=== PATIENT | female | born 1955 | race Hispanic/Latino ===

== ENCOUNTER → 2017-04-16 | Day surgery (SDC) | payer BC ==
[~2017-04-16] MED LIST: ACTIVELLA 0.5-1 EACH; ASPIRIN EC81 MG PO; BENTYL10 MG PO; BUTALB-ACETAMIN-CAFF PO; CALCIUM600 MG PO; ELMIRON100 MG; ENALAPRIL MALEA20 MG PO; FENTANYL CITRATE/PF 100MCG/2 ML INJ ONE; LASIX40 MG; LEVAQUIN500 MG PO; LIDOCAINE HCL 2% LOCAL INJ 5 ML SDV VIAL INJ ONE; METOPROLOL SUC100 MG PO; MIDAZOLAM HCL 2 MG/2 ML VIAL ONE; NAPROXEN375 MG PO; PRILOSEC20 MG PO; PROPOFOL IV EMULSION 10 MG/ML 50 ML VIAL ONE; PYRIDIUM100 MG PO; ZOFRAN ODT4 MG PO
== END | disposition home or self-care (01) ==
LOC: OR 08:34
PROVIDERS: ATTEND Internal Medicine Gastroenterology
DX: K21.9 Gastro-esophageal reflux disease without esophagitis (principal); D12.2 Benign neoplasm of ascending colon; K29.70 Gastritis, unspecified, without bleeding; K57.30 Diverticulosis of large intestine without perforation or abscess without bleeding; K64.1 Second degree hemorrhoids; K44.9 Diaphragmatic hernia without obstruction or gangrene; I10 Essential (primary) hypertension; Z01.810 Encounter for preprocedural cardiovascular examination; Z79.82 Long term (current) use of aspirin
CPT/HCPCS: 43239; 45384; 93005; J2001; J2250; 45378

== ENCOUNTER → 2017-08-14 | Outpatient (CLI) | payer BC ==
[~2017-08-14] MED LIST changes: -FENTANYL CITRATE/PF 100MCG/2 ML INJ ONE; -LIDOCAINE HCL 2% LOCAL INJ 5 ML SDV VIAL INJ ONE; -MIDAZOLAM HCL 2 MG/2 ML VIAL ONE; -PROPOFOL IV EMULSION 10 MG/ML 50 ML VIAL ONE
--- NOTE | 2017-08-14 12:17 | Diagnostic Imaging Report ---
PROCEDURE:BONE DXA DUAL ENERGY FINDINGS: Proximal femur bone mineral density (BMD) (g/cm2):0.780 Femur T-score (standard deviation relative to young adult mean BMD): -1.4 Femur Z-score (standard deviation relative to age-matched control group):-2.6 10 year fracture risk: Major osteoporotic fracture: 4.9% Hip fracture: 0.5% Lumbar bone mineral density (BMD) (g/cm2):0.781 Lumbar T-score (standard deviation relative to young adult mean BMD): -2.4 Lumbar Z-score (standard deviation relative to age-matched control group):- 0.8 Change since prior exam (%): Femur:0.7% Spine:1.8% Change since oldest prior exam (%): Femur:-2.6% Spine:2.6% IMPRESSION: World Health Organization Classification:Osteopenia. Increase risk of fracture. *The Z-score is provided for informational purposes. The T-score is preferable for clinical decisions. When comparing exams, a change of >4% is considered statistically significant. SUGGESTED RECOMMENDATIONS: Normal \T\ Osteopenia:Consideration should be given to use of calcium supplementation, daily multiple vitamins and adequate exercise, as preventive measures against osteoporosis, if clinically indicated. Osteoporosis \T\ Severe Osteoporosis:In addition to the above, consideration should be given to medical therapy against osteoporosis, if clinically indicated. Maribell Cesar M.D. Dictated by: Maribell Cesar M.D. on 08/14/2017 at 12:17 Electronically approved by: Maribell Cesar M.D. on 08/14/2017 at 12:17
--- NOTE | 2017-08-23 18:11 | Diagnostic Imaging Report ---
#[id number] - MGSCRBIL #BILATERAL DIGITAL SCREENING MAMMOGRAM WITH CAD: 08/14/2017 CLINICAL: Routine screening. Comparison is made to exams dated: 05/09/2016 mammogram and 05/21/2015 mammogram - [facility]. Current study contains 4 films. There are scattered fibroglandular elements in both breasts. Current study was also evaluated with a Computer Aided Detection (CAD) system. There are benign calcifications in both breasts. No significant masses, calcifications, or other findings are seen in either breast. There has been no significant interval change. IMPRESSION: BENIGN There is no mammographic evidence of malignancy. A 1 year screening mammogram is recommended. The patient will be notified by letter of the results. Ezra alexander/joão:08/22/2017 13:01:25 Security Operations Engineer: Ira NICK(Ananya)(M), [facility] letter sent: Compared to Prior B9 Mammogram BI-RADS: 2 Benign
== END ==
LOC: MAMMO 08:10
PROVIDERS: ATTEND Obstetrics & Gynecology
DX: Z12.31 Encounter for screening mammogram for malignant neoplasm of breast (principal); Z13.820 Encounter for screening for osteoporosis
CPT/HCPCS: 77067; 77080

== ENCOUNTER 2018-02-06 21:56 | Emergency (ER) | payer BC ==
[~2018-02-06] VITALS: Ht 154.9 cm; Wt 62.1 kg
[2018-02-06] MEDS ORDERED: MAGNESIUM/ALUMINUM/SIMETHICONE 30 ML UDC ONE (22:48)
[2018-02-06] MEDS ORDERED: LIDOCAINE VISC 2% SOLN 15 ML UDC ONE (22:48)
[2018-02-06] MEDS ORDERED: BELLADONNA ALK/PHENOBARBITAL 5 ML UDC ONE (22:48)
[2018-02-06] MEDS: DONNATAL/LIDOCAINE/MAALOX 30 ML SUSP PO ONE ×2 (22:49→22:50)
[2018-02-06] MEDS ORDERED: CARAFATE1 GM/10 ML PO (23:27)
== END 2018-02-06 23:36 | disposition home or self-care (01) ==
LOC: ER 21:56
DX: R10.13 Epigastric pain (principal); K29.00 Acute gastritis without bleeding; I10 Essential (primary) hypertension; K21.9 Gastro-esophageal reflux disease without esophagitis

== ENCOUNTER 2018-03-12 21:00 | Observation (INO) | payer BC ==
[~2018-03-12] VITALS: Ht 149.9 cm; Wt 65.0 kg
[~2018-03-12 21:00] MED LIST changes: +CARAFATE1 GM/10 ML PO
[2018-03-12] MEDS ORDERED: ONDANSETRON HCL INJ 2 MG/ML VIAL IV ONE (21:22)
[2018-03-12] MEDS ORDERED: DIATRIZOATE MEGL/DIATRIZOA SOD 30 ML BTL PO ONE (21:27)
[2018-03-12] MEDS ORDERED: SODIUM CHLORIDE 0.9% 1000ML 1,000 ML IV ONE (21:30)
[2018-03-12 21:44] LABS: BASOPHILS % 0.3 % (0.0-1.0); HEMATOCRIT 38.7 % (34.2-44.1); HEMOGLOBIN 13.2 g/dL (12.0-16.0); LYMPHOCYTES # (AUTO) 0.8 (1.0-3.2); LYMPHOCYTES % 7.6 % (18.0-39.1); MEAN CORPUSCULAR HEMOGLOBIN 33.8 pg (28-32); MEAN CORPUSCULAR HGB CONC 34.1 g/dL (31-35); MONOCYTES # (AUTO) 0.6 (0.2-0.8); MONOCYTES % 5.7 % (4.4-11.3); NEUTROPHILS # (AUTO) 9.3 (2.1-6.9); NEUTROPHILS % 85.7 % (38.7-80.0); PLATELET COUNT 189 x10e3/uL (140-360); RED BLOOD COUNT 3.91 x10e6/uL (3.6-5.1); RED CELL DISTRIBUTION WIDTH 12.4 % (11.7-14.4)
[2018-03-12 22:09] LABS: ALANINE AMINOTRANSFERASE 28 IU/L (0-55); ALBUMIN 4.4 g/dL (3.5-5.0); ALBUMIN/GLOBULIN RATIO 1.5 (0.8-2.0); ALKALINE PHOSPHATASE 80 IU/L (40-150); AMYLASE 49 U/L (25-125); ANION GAP 18.3 mmol/L (8-16); BLOOD UREA NITROGEN 13 mg/dL (7-26); BUN/CREATININE RATIO 15 (6-25); CALCIUM 9.5 mg/dL (8.4-10.2); CARBON DIOXIDE 22 mmol/L (22-29); CHLORIDE 104 mmol/L (98-107); CREATININE, SERUM 0.86 mg/dL (0.57-1.11); EST GLOMERULAR FILTRATION RATE > 60 ML/MIN (60-); GLUCOSE 170 mg/dL (74-118); LIPASE 27 U/L (8-78); POTASSIUM 4.3 mmol/L (3.5-5.1); SODIUM 140 mmol/L (136-145)
[2018-03-12] MEDS ORDERED: MORPHINE SULFATE 2 MG/ML SYR IV STA (22:12)
[2018-03-12 22:22] LABS: CLARITY,URINE CLEAR (CLEAR); COLOR,URINE YELLOW (YELLOW); KETONES,URINE 2+ (NEGATIVE); LEUKOCYTE ESTERASE ,URINE NEGATIVE (NEGATIVE); NITRITE,URINE NEGATIVE (NEGATIVE); PROTEIN,URINE DIPSTICK 1+ (NEGATIVE); URINE UROBILINOGEN 0.2 mg/dL (0.2 - 1)
[2018-03-12 22:23] LABS: BILIRUBIN,URINE NEGATIVE (NEGATIVE)
[2018-03-12 22:31] LABS: BACTERIA,URINE RARE /HPF; EPITHELIAL CELLS,URINE FEW /LPF; MUCUS,URINE FEW (RARE)
[2018-03-12] MEDS ORDERED: IOPAMIDOL 370 MG/ML 200 ML INFUS..BTL INJ ONE (22:42)
[2018-03-12] MEDS ORDERED: SODIUM CHLORIDE 0.9% 50ML 50 ML ONE (22:42)
--- NOTE | 2018-03-12 23:41 | Diagnostic Imaging Report ---
EXAM: CT Abdomen and Pelvis WITH contrast INDICATION: Abdominal pain, right lower quadrant. COMPARISON: None. TECHNIQUE: Abdomen and pelvis were scanned utilizing a multidetector helical scanner from the lung base to the pubic symphysis after administration of IV contrast. Coronal and sagittal reformations were obtained. Routine protocol was performed. Scan was performed when during portal venous phase. IV CONTRAST: 100 mL of Isovue-370 ORAL CONTRAST: Gastrografin RADIATION DOSE: Total DLP: 233.40 mGy*cm Estimated effective dose: (DLP x 0.015 x size factor) mSv COMPLICATIONS: None FINDINGS: LINES and TUBES: None. LOWER THORAX: Unremarkable HEPATOBILIARY: No focal hepatic lesions. No biliary ductal dilation. GALLBLADDER: No radio-opaque stones or sludge. No wall thickening. SPLEEN: No splenomegaly. PANCREAS: No focal masses or ductal dilatation. ADRENALS: No adrenal nodules KIDNEYS/URETERS: Kidneys enhance symmetrically. No hydronephrosis. No cystic or solid mass lesions. No stones. GI TRACT: No abnormal distention, wall thickening, or evidence of bowel obstruction. The appendix is diffusely distended with fluid with evidence of a large appendicolith at the origin of the appendix. The appendix measures 1.3 cm in maximum dimension. PELVIC ORGANS/BLADDER: Unremarkable. LYMPH NODES: No lymphadenopathy. VESSELS: Unremarkable. PERITONEUM / RETROPERITONEUM: No free air or fluid. BONES: Unremarkable. SOFT TISSUES: Right gluteal area of fat necrosis and bilateral soft tissue calcifications . IMPRESSION: 1. Findings in the right lower quadrant are consistent with uncomplicated acute appendicitis. Signed by: Dr. Nic Pastrana M.D. on 03/12/2018 11:37 PM
[2018-03-13] VITALS (8 sets, daily range): BP systolic 86–131; BP diastolic 45–62
[2018-03-13] MEDS ORDERED: MORPHINE SULFATE 2 MG/ML SYR IV PRN
[2018-03-13] MEDS ORDERED: ONDANSETRON HCL INJ 2 MG/ML VIAL IV PRN
[2018-03-13] MEDS: ACETAMINOPHEN 1000 MG/100 ML IV PRN ×2 (01:26→07:47)
[2018-03-13] MEDS: SODIUM CHLORIDE 0.9% 1000ML 1,000 ML IV SCH ×4 (01:26→23:58)
[2018-03-13] MEDS: PIPER-TAZ 3.375 GM / NS 50ML IV SCH ×4 (01:34→17:25)
[2018-03-13] MEDS ORDERED: PROMETHAZINE HC25 M1 PO (01:37)
[2018-03-13] MEDS ORDERED: IBGARD PO (01:37)
[2018-03-13] MEDS ORDERED: PANTOPRAZOLE SO40 MG PO (01:37)
[2018-03-13] MEDS ORDERED: ULTRAM 50MG50 MG PO (01:37)
[2018-03-13 06:34] LABS: BASOPHILS % 0.1 % (0.0-1.0); HEMATOCRIT 32.5 % (34.2-44.1); LYMPHOCYTES % 10.3 % (18.0-39.1); MEAN CORPUSCULAR HEMOGLOBIN 33.8 pg (28-32); MEAN CORPUSCULAR HGB CONC 33.8 g/dL (31-35); MONOCYTES # (AUTO) 0.8 (0.2-0.8); MONOCYTES % 8.3 % (4.4-11.3); NEUTROPHILS # (AUTO) 7.9 (2.1-6.9); NEUTROPHILS % 80.9 % (38.7-80.0); PLATELET COUNT 128 x10e3/uL (140-360); RED BLOOD COUNT 3.25 x10e6/uL (3.6-5.1); RED CELL DISTRIBUTION WIDTH 12.3 % (11.7-14.4)
[2018-03-13 07:02] LABS: ALANINE AMINOTRANSFERASE 20 IU/L (0-55); ALBUMIN 3.4 g/dL (3.5-5.0); ALBUMIN/GLOBULIN RATIO 1.5 (0.8-2.0); ALKALINE PHOSPHATASE 62 IU/L (40-150); ANION GAP 14.1 mmol/L (8-16); BLOOD UREA NITROGEN 9 mg/dL (7-26); BUN/CREATININE RATIO 11 (6-25); CALCIUM 8.2 mg/dL (8.4-10.2); CARBON DIOXIDE 21 mmol/L (22-29); CHLORIDE 107 mmol/L (98-107); CREATININE, SERUM 0.81 mg/dL (0.57-1.11); EST GLOMERULAR FILTRATION RATE > 60 ML/MIN (60-); GLUCOSE 132 mg/dL (74-118); POTASSIUM 4.1 mmol/L (3.5-5.1); SODIUM 138 mmol/L (136-145)
[2018-03-13] MEDS ORDERED: BUPIVACAINE 0.25%/EPI 30ML SDV INJ ONE (09:10)
[2018-03-13] MEDS: PANTOPRAZOLE 40 MG 10ML VIAL IV SCH (11:38)
--- NOTE | 2018-03-13 12:02 | History and Physical ---
CLINICAL HISTORY: This is a 62-year-old woman known to me from previous evaluation, admitted via the emergency room because of acute appendicitis. The patient is status post endoscopy on the day of admission but still had abdominal pains. Came to the emergency room and was found to have acute appendicitis include CT findings consistent with clinical findings. Surgical consultation has been obtained with Drs. Wahl and Pierce Contreras. PAST MEDICAL HISTORY: Remarkable for hospitalization in 2013 for right calf pain. At that time, there was concern about deep venous thrombosis after multiple suboptimal scans, it was determined that she did not. She has a history of hypertension, hyperlipidemia, chronic headaches. PAST SURGERY: Included cholecystectomy, right knee replacement, cystoscopy and biopsy. PERSONAL SOCIAL HISTORY: Denies drinking, smoking. She is , sexually active. MEDICATIONS AT HOME: Include pantoprazole, promethazine, tramadol, enalapril 20 mg p.o. b.i.d., metoprolol 100 mg p.o. daily, IBgard. REVIEW OF SYSTEMS: Noncontributory. PHYSICAL EXAMINATION GENERAL: She is alert, coherent. CARDIOVASCULAR: Jugular veins were not distended. S1 and S2 were regular. There is no appreciable murmur. RESPIRATORY: Lungs are clear. ABDOMEN: Showed tenderness. EXTREMITIES: Show no cyanosis, clubbing, or edema. LABORATORY STUDIES: The white count was 10,800, hemoglobin 13.2, platelet count 189,000. The urinalysis showed 2+ ketones and blood, 11 to 20 RBCs, 6 to 10 WBCs, few bacteria. The BUN is 13, creatinine 0.8. IMPRESSIONS 1. Acute appendicitis. 2. Status post endoscopy on the day of admission. 3. Hypertension. 4. Hyperlipidemia. 5. Possible urinary tract infection. 6. Microhematuria. 7. Elevated blood sugar, consider prediabetes. 8. History of headaches. 9. History of right calf pain in 2013, but deep venous thrombosis was excluded. 10. Status post cystoscopy. 11. In the distant, past right knee replacement, cholecystectomy. Job#: [id number] TA cc:YEIMY COLLINS MD cc:PIERCE CONTRERAS MD
--- NOTE | 2018-03-13 13:11 | Operative Report ---
DATE OF PROCEDURE: March 13, 2018 PREOPERATIVE DIAGNOSIS: Acute appendicitis. POSTOPERATIVE DIAGNOSIS: Acute gangrenous appendicitis. PROCEDURE PERFORMED: Laparoscopic appendectomy. ANESTHESIA: General endotracheal. ESTIMATED BLOOD LOSS: Minimal. DRAINS: None. COMPLICATIONS: None. INDICATIONS AND FINDINGS: The patient is a 62-year-old female who had undergone yesterday colonoscopy and then subsequently she developed right lower quadrant pain, presented to the emergency room at [facility] where she underwent a CAT scan that revealed acute appendicitis. INTRAOPERATIVE FINDINGS: Acute gangrenous appendicitis. No gross perforation. DESCRIPTION OF PROCEDURE: With the patient lying on the operative table in the supine position, after administration of general anesthesia, she was prepped and draped for laparoscopic appendectomy. The procedure was begun by establishing a pneumoperitoneum in the umbilical site and then after the saline drop test was performed, a pneumoperitoneum was created to 15 mm of pressure. Then, a stab wound was made in that location and then the 11-12 trocar placed in that location. Camera introduced. Two working ports were placed, one in the right upper quadrant and the other one in the right lower quadrant suprapubic region using 5 mm size. The abdominal cavity was inspected. Appendix was seen easily, it was gangrenous, but not perforated. We went ahead and then made a rent in the mesoappendix and transected part of it with Endo SAMMIE using the white load. Then, we gained access to the cecum and then using the blue load, we transected the mesoappendiceal junction at a point where the appendix was soft and pliable. Then, we completed the procedure by firing and completed the transection of the mesoappendix using a white load with Endo SAMMIE also. The appendix was detached, placed in an Endo bag and removed through the umbilical port. We re-insufflated the pneumoperitoneum, inspected the operative field, irrigated the right lower quadrant. There was no evidence of bleeding or any evidence of bowel leak. At this point, we released the pneumoperitoneum and closed the wounds using 0 Vicryl for the umbilical fascia, 3-0 Vicryl for the subcutaneous tissue in that location as well as the subxiphoid port and the skin of all the ports was closed with joseph. A 0.25% Marcaine with epinephrine was given as local block. The patient tolerated the procedure well and taken to the recovery room in stable condition. Job#: [id number] VAS
[2018-03-13] MEDS ORDERED: FENTANYL CITRATE/PF 100MCG/2 ML INJ ONE (18:43)
[2018-03-13] MEDS ORDERED: MIDAZOLAM HCL 2 MG/2 ML VIAL ONE (18:43)
[2018-03-13] MEDS ORDERED: KETOROLAC TROMETHAMINE 30 MG/ML VIAL ONE (19:29)
[2018-03-13] MEDS ORDERED: GLYCOPYRROLATE INJ 1MG/ 5 ML SYR ONE (19:29)
[2018-03-13] MEDS ORDERED: ONDANSETRON HCL INJ 2 MG/ML VIAL ONE (19:29)
[2018-03-13] MEDS ORDERED: NEOSTIGMINE 5 MG/5ML SYR ONE (19:29)
[2018-03-13] MEDS ORDERED: SEVOFLURANE INHAL SOLN 250 ML PEN BTL ONE (19:29)
[2018-03-13] MEDS ORDERED: PROPOFOL IV EMULSION 10 MG/ML 20 ML VIAL ONE (19:29)
[2018-03-13] MEDS ORDERED: LIDOCAINE HCL 2% LOCAL INJ 5 ML SDV VIAL INJ ONE (19:29)
[2018-03-13] MEDS ORDERED: DEXAMETHASONE SOD PHOS INJ 4 MG/ML VIAL ONE (19:29)
[2018-03-13] MEDS ORDERED: ROCURONIUM BROMIDE 10 MG/ML 5ML VIAL ONE (19:29)
[2018-03-13] MEDS ORDERED: ACETAMINOPHEN 1000 MG/100 ML IV PRN (19:30)
[2018-03-13] MEDS ORDERED: MORPHINE SULFATE INJ 4 MG/ML INJ IV PRN (19:30)
--- NOTE | 2018-03-13 20:25 | Consultation ---
DATE OF CONSULTATION: Consultation for Dr. Wang and Dr. Vish Contreras. HISTORY: Utjal[age]oy[age]q-old female well known to me for having interstitial cystitis and chronic urinary tract infections. She has had cystoscopy with urodynamic evaluation, has been found to have interstitial cystitis by biopsy and by clinical impression. She has been treated for this condition on and off. The patient has an open door policy in my office and comes to my office whenever she feels bad. I have not seen her in approximately a year. When this year she comes to the office complaining of pain, she had a urinary tract infection, this was cleared. She still had abdominal pain and a CT scan was done. The CT scan was not with contrast, but it did not show any abnormalities of the intestinal tract or the urinary tract. PAST MEDICAL HISTORY: Patient has had interstitial cystitis for over 20 years, has handled it well on medications and on diet periodically depending on whether she follows her diet and takes her medicines, which she does not do all the time. ALLERGIES: NONE. MEDICATIONS: . She also takes her blood pressure medicines. SOCIAL HISTORY: She is , has had children. She is sexually active. UROLOGICAL EXAMINATION: At this point, the patient has an indwelling Stewart catheter. She was getting voiding trial today and has been able to urinate small amounts with 250 mL residual. IMPRESSION: Interstitial cystitis, urinary retention post appendectomy. RECOMMENDATIONS: The patient has an indwelling Stewart catheter. Her urine is clear. She will have the Stewart catheter removed tomorrow morning 5:30, given a voiding trial. If her postvoid residual is over 100, she will have a catheter, a leg bag. She may go home if okay with the admitting physician, and I will see her in the office Saturday morning. Thank you very much. Job#: [id number]
[2018-03-14] MEDS: PIPER-TAZ 3.375 GM / NS 50ML IV SCH ×4 (00:09→17:08)
[2018-03-14] MEDS: SODIUM CHLORIDE 0.9% 1000ML 1,000 ML IV SCH (03:21)
[2018-03-14 04:00] VITALS: BP 104/55
[2018-03-14 05:53] LABS: HEMATOCRIT 27.7 % (34.2-44.1); HEMOGLOBIN 9.5 g/dL (12.0-16.0); LYMPHOCYTES # (AUTO) 0.7 (1.0-3.2); LYMPHOCYTES % 9.2 % (18.0-39.1); MEAN CORPUSCULAR HEMOGLOBIN 35.2 pg (28-32); MEAN CORPUSCULAR HGB CONC 34.3 g/dL (31-35); MEAN CORPUSCULAR VOLUME 102.6 fL (81-99); MONOCYTES # (AUTO) 0.5 (0.2-0.8); MONOCYTES % 7.1 % (4.4-11.3); NEUTROPHILS # (AUTO) 5.9 (2.1-6.9); PLATELET COUNT 131 x10e3/uL (140-360); RED CELL DISTRIBUTION WIDTH 12.6 % (11.7-14.4)
[2018-03-14 06:03] LABS: ANION GAP 12.2 mmol/L (8-16); BLOOD UREA NITROGEN 9 mg/dL (7-26); BUN/CREATININE RATIO 12 (6-25); CALCIUM 7.8 mg/dL (8.4-10.2); CARBON DIOXIDE 19 mmol/L (22-29); CHLORIDE 113 mmol/L (98-107); CREATININE, SERUM 0.75 mg/dL (0.57-1.11); EST GLOMERULAR FILTRATION RATE > 60 ML/MIN (60-); GLUCOSE 110 mg/dL (74-118); POTASSIUM 4.2 mmol/L (3.5-5.1); SODIUM 140 mmol/L (136-145)
[2018-03-14 07:25] VITALS: BP 118/57
[2018-03-14] MEDS: PANTOPRAZOLE 40 MG 10ML VIAL IV SCH (08:29)
[2018-03-14] MEDS ORDERED: KETOROLAC TROMETHAMINE 30 MG/ML VIAL IV PRN (09:00)
[2018-03-14] MEDS ORDERED: OYST-CAL-D 500MG TABLET PO NR (09:15)
[2018-03-14 09:28] LABS: % IRON SATURATION 16 % (15-50); IRON 35 ug/dL (50-170); TOTAL IRON BINDING CAPACITY 216 ug/dL (261-478); TRANSFERRIN 154 mg/dL (180-382)
--- NOTE | 2018-03-14 09:32 | Discharge Summary ---
CLINICAL HISTORY: This is a 62-year-old woman known to me from previous evaluations admitted via the emergency room because of acute appendicitis following upper endoscopy by Dr. Dick Sow. Please refer to my previous dictation concerning details of current illness, past medical history, personal and social history, family history, review of systems, physical examination, initial laboratory studies. HOSPITAL COURSE: The patient was found to have acute appendicitis based on CT scan, as well as clinical examination. Surgery consultation was obtained with Dr. Pierce Contreras, who performed successful laparoscopic appendectomy, which was tolerated well. She had no immediate postoperative complications. Able to progress with diet. Mobilized and adequate pain control. Discharged on the same medication she was taking previously. DISCHARGE DIAGNOSES: Same as on admission. During this hospitalization, the patient did had microhematuria and some white cells, but she was covered with antibiotics during her appendectomy. It was felt that she can followed further on an outpatient basis with her urologist, Dr. Viraj Kirby, who did come and see the patient during this hospitalization. Following the surgery, the patient was slightly acidotic and had slightly low albumin, as well as calcium. Appropriate corrections were made. HANS GODOY MD Job#: [id number] RI cc:MD PIERCE FIORE MD RAMON A. PINEDA, MD HARRY S. OJEAS, MD
[2018-03-14] MEDS: SODIUM BICARBONATE 650 MG TAB PO SCH ×2 (09:37→13:47)
[2018-03-14 11:08] VITALS: BP 118/57
[2018-03-14 12:00] VITALS: BP 103/51
[2018-03-14 16:12] VITALS: BP 107/51
[2018-03-14] MEDS ORDERED: LEVAQUIN500 MG PO (16:34)
[2018-03-14] MEDS ORDERED: TYLENOL WITH C1 EACH PO (16:34)
--- OUTSIDE RECORDS SUMMARY | 2018-03-25 10:01 | XMS REPORT ---
Author Author [facility] Address Unknown Phone Unavailable Care Team Providers Care Mayonnaise Mixer Name Role Phone Maria Victoria BARRIENTOS Unavailable Unavailable SHERRI, KERRI Unavailable Unavailable SWEET, A LAIRD Unavailable Unavailable Problems This patient has no known problems. Allergies, Adverse Reactions, Alerts This patient has no known allergies or adverse reactions. Medications This patient has no known medications. Results Test Description Test Time Test Comments Text Results Atomic Results Result Comments CT ABDOMEN/PELVIS W 2018-03-12 23:35:00 [place] [address] Patient Name: PRIMITIVO MORGAN MR #: [id number] : 1955 Age/Sex: 62/F Req #: [id number] Adm Physician: Ordered by: MADEELINE BARRIENTOS MD Report #: [id number] Location: ER Room/Bed: Procedure: [id number] CT/CT ABDOMEN/PELVIS W Exam Date: Exam Time: REPORT STATUS: Signed EXAM: CT Abdomen and Pelvis WITH contrast INDICATION: Abdominal pain, right lower quadrant. COMPARISON: None. TECHNIQUE: Abdomen and pelvis were scanned utilizing a multidetector helical scanner from the lung base to the pubic symphysis after administration of IV contrast. Coronal and sagittal reformations were obtained. Routine protocol was performed. Scan was performed when during portal venous phase. IV CONTRAST: 100 mL of Isovue-370 ORAL CONTRAST: Gastrografin RADIATION DOSE: Total DLP: 233.40 mGy*cm Estimated effective dose: (DLP x 0.015 x size factor) mSv COMPLICATIONS: None FINDINGS: LINES and TUBES: None. LOWER THORAX: Unremarkable HEPATOBILIARY: No focal hepatic lesions. No biliary ductal dilation. GALLBLADDER: No radio-opaque stones or sludge. No wall thickening. SPLEEN: No splenomegaly. PANCREAS: No focal masses or ductal dilatation. ADRENALS: No adrenal nodules KIDNEYS/URETERS: Kidneys enhance symmetrically. No hydronephrosis. No cystic or solid mass lesions. No stones. GI TRACT: No abnormal distention, wall thickening, or evidence of bowel obstruction. The appendix is diffusely distended with fluid with evidence of a large appendicolith at the origin of the appendix. The appendix measures 1.3 cm in maximum dimension. PELVIC ORGANS/BLADDER: Unremarkable. LYMPH NODES: No lymphadenopathy. VESSELS: Unremarkable. PERITONEUM / RETROPERITONEUM: No free air or fluid. BONES: Unremarkable. SOFT TISSUES: Right gluteal area of fat necrosis and bilateral soft tissue calcifications . IMPRESSION: 1. Findings in the right lower quadrant are consistent with uncomplicated acute appendicitis. Signed by: Dr. Nic Pastrana M.D. on 03/12/2018 11:37 PM Dictated By: NIC MALDONADO MD 36 Transcribed By: GAVIN on 03/12/182336 COPY TO: MADELEINE BARRIENTOS MD BONE DXA DUAL ENERGY [place] [address] Patient Name: PRIMITIVO MORGAN MR #: [id number] : 1955 Age/Sex: 62/F Req #: [id number] Adm Physician: Ordered by: KERRI POLANCO MD Report #: [id number] Location: [facility] Room/Bed: Procedure: [id number] DX/BONE DXA DUAL ENERGY Exam Date: Exam Time: REPORT STATUS: Signed PROCEDURE: BONE DXA DUAL ENERGY FINDINGS: Proximal femur bone mineral density (BMD) (g/cm2): 0.780 Femur T-score (standard deviation relative to young adult mean BMD): -1.4 Femur Z-score (standard deviation relative to age-matched control group): -2.6 10 year fracture risk: Major osteoporotic fracture: 4.9% Hip fracture: 0.5% Lumbar bone mineral density (BMD) (g/cm2): 0.781 Lumbar T-score (standard deviation relative to young adult mean BMD): -2.4 Lumbar Z-score (standard deviation relative to age-matched control group): - 0.8 Change since prior exam (%): Femur: 0.7% Spine: 1.8% Change since oldest prior exam (%): Femur: -2.6% Spine: 2.6% IMPRESSION: World Health Organization Classification: Osteopenia. Increase risk of fracture. *The Z-score is provided for informational purposes. The T-score is preferable for clinical decisions. When comparing exams, a change of >4% is considered statistically significant. SUGGESTED RECOMMENDATIONS: Normal T Osteopenia: Consideration should be given to use of calcium supplementation, daily multiple vitamins and adequate exercise, as preventive measures against osteoporosis, if clinically indicated. Osteoporosis T Severe Osteoporosis: In addition to the above, consideration should be given to medical therapy against osteoporosis, if clinically indicated. Maribell Freeman M.D. Dictated by: Maribell Freeman M.D. on 08/14/2017 at 12:17 Electronically approved by: Maribell Freeman M.D. on 08/14/2017 at 12:17 Dictated By: ANN MARIE FREEMAN MD, MD Transcribed By: STEPHANIE on 08/14/17 1217 COPY TO: KERRI POLANCO MD MAMMOGRAPHY DIGITAL SCR [facility] [address] [place] [address] Patient Name: PRIMITIVO MORGAN MR #: [id number] : 1955 Age/Sex: 62/F Req #: [id number] [facility] Physician: Ordered by: KERRI POLANCO MD Report #: [id number] Location: MAMMO Room/Bed: Procedure: [id number] MG/MAMMOGRAPHY DIGITAL SCR BILAT Exam Date: 08/14/17 Exam Time: 0842 REPORT STATUS: Signed #[id number] - MGSCRBIL #BILATERAL DIGITAL SCREENING MAMMOGRAM WITH CAD: 08/14/2017 CLINICAL: Routine screening. Comparison is made to exams dated: 05/09/2016 mammogram and 05/21/2015 mammogram - [facility]. Current study contains 4 films. There are scattered fibroglandular elements in both breasts. Current study was also evaluated with a Computer Aided Detection (CAD) system. There are benign calcifications in both breasts. No significant masses, calcifications, or other findings are seen in either breast. There has been no significant interval change. IMPRESSION: BENIGN There is no mammographic evidence of malignancy. A 1 year screening mammogram is recommended. The patient will be notified by letter of the results. Ezra alexander/joão:08/22/2017 13:01:25 Reinforcing Rod Layer: Ira NIKC(R)(M), [facility] letter sent: Compared to Prior B9 Mammogram BI-RADS: 2 Benign Dictated By: EZRA GARCIA DO 1301 Transcribed By: JOÃO on 08/22/17 1301 COPY TO: KERRI POLANCO MD CT ABDOMEN/PELVIS WO [facility] [address] [place] [address] Patient Name: PRIMITIVO MORGAN MR #: [id number] : 1955 Age/Sex: 61/F Req #: [id number] Adm Physician: Ordered by: CRISTINE BROTHERS MD Report #: [id number] Location: ER Room/Bed: Procedure: [id number] CT/CT ABDOMEN/PELVIS WO Exam Date: 03/18/17 Exam Time: 0350 REPORT STATUS: Signed EXAM: CT ABDOMEN AND PELVIS without IV CONTRAST DATE: 03/18/2017 2:53 AM Time stamp on Exam: 0354 hours INDICATION: Left-sided abdominal pain COMPARISON: CT of the abdomen and pelvis without IV contrast August 28, 2014 TECHNIQUE: The abdomen and pelvis were scanned using a multidetector helical scanner. Coronal and sagittal reformations were obtained. Renal stone protocol performed. IV Contrast: None Oral Contrast: Gastrografin CTDIvol has been reviewed. It is below the limits set by the Radiation Protocol Committee (RPC). FINDINGS: LOWER THORAX: No consolidations LIVER: No masses BILIARY: The gallbladder is unremarkable. No ductal dilation. SPLEEN: No masses PANCREAS: No masses ADRENALS: No nodules RIGHT KIDNEY: No nephroureterolithiasis or hydronephrosis. LEFT KIDNEY: No nep hroureterolithiasis or hydronephrosis. GI TRACT: No distention, wall thickening or evidence of obstruction. No evidence of appendicitis. VESSELS: Stable appearance PERITONEUM/RETROPERITONEUM: No free air or fluid LYMPH NODES: No lymphadenopathy REPRODUCTIVE ORGANS: Unremarkable BLADDER: Unremarkable SOFT TISSUES: Tiny fat-containing umbilical hernia. BONES: No suspicious bone lesions. IMPRESSION: No CT findings to explain patient's left-sided abdominal pain. No nephroureterolithiasis. Signed by: Dr. Luis Fernando Aldana M.D. on 03/18/2017 4:14 AM Dictated By: LUIS FERNANDO ALDANA MD 3 Transcribed By: GAVIN on 03/18/17413 COPY TO: CRISTINE BROTHERS MD
== END 2018-03-14 18:03 | disposition home health service (06) ==
LOC: ER 21:04 → ERHOLD 03-13 00:13 → INTOOBSV 03-13 00:13 → MED/SURG 03-13 00:52
PROVIDERS: ADMIT Internal Medicine Cardiovascular Disease; ATTEND Internal Medicine Cardiovascular Disease
DX: K35.80 Unspecified acute appendicitis (principal); Z96.651 Presence of right artificial knee joint; I10 Essential (primary) hypertension; N30.10 Interstitial cystitis (chronic) without hematuria; E78.5 Hyperlipidemia, unspecified; R31.29 Other microscopic hematuria; R73.9 Hyperglycemia, unspecified; R51 Headache; K21.9 Gastro-esophageal reflux disease without esophagitis
CPT/HCPCS: 36415 ×3; 44970; 74177; 80048; 80053 ×2; 81001; 82150; 83540; 83690; 84466; 85025 ×3; 88304; 96374; 96376; 99284; C1766; G0378 ×2; J1100; J1885 ×2; J2001; J2250; J2270 ×2; J2405 ×2; J2543 ×2; J3490; J7030 ×2; Q9967

== ENCOUNTER → 2018-07-18 | Outpatient (CLI) | payer BC ==
[~2018-07-18] MED LIST changes: +IBGARD PO; +PANTOPRAZOLE SO40 MG PO; +PROMETHAZINE HC25 M1 PO; +TYLENOL WITH C1 EACH PO; +ULTRAM 50MG50 MG PO
[2018-07-18 08:10] LABS: BASOPHILS % 0.6 % (0.0-1.0); EOSINOPHILS # (AUTO) 0.1 (0.0-0.4); EOSINOPHILS % 1.2 % (0.0-6.0); HEMATOCRIT 39.3 % (34.2-44.1); HEMOGLOBIN 13.3 g/dL (12.0-16.0); LYMPHOCYTES # (AUTO) 1.4 (1.0-3.2); LYMPHOCYTES % 19.9 % (18.0-39.1); MEAN CORPUSCULAR HEMOGLOBIN 32.8 pg (28-32); MEAN CORPUSCULAR HGB CONC 33.8 g/dL (31-35); MONOCYTES # (AUTO) 0.6 (0.2-0.8); MONOCYTES % 8.3 % (4.4-11.3); NEUTROPHILS # (AUTO) 4.8 (2.1-6.9); NEUTROPHILS % 69.3 % (38.7-80.0); PLATELET COUNT 170 x10e3/uL (140-360); RED BLOOD COUNT 4.05 x10e6/uL (3.6-5.1); RED CELL DISTRIBUTION WIDTH 12.3 % (11.7-14.4)
[2018-07-18 08:38] LABS: ALANINE AMINOTRANSFERASE 18 IU/L (0-55); ALBUMIN/GLOBULIN RATIO 1.3 (0.8-2.0); ALKALINE PHOSPHATASE 71 IU/L (40-150); ANION GAP 13.5 mmol/L (8-16); BLOOD UREA NITROGEN 9 mg/dL (7-26); BUN/CREATININE RATIO 11 (6-25); CALCIUM 9.3 mg/dL (8.4-10.2); CARBON DIOXIDE 24 mmol/L (22-29); CHLORIDE 104 mmol/L (98-107); CREATININE, SERUM 0.82 mg/dL (0.57-1.11); EST GLOMERULAR FILTRATION RATE > 60 ML/MIN (60-); GLUCOSE 120 mg/dL (74-118); POTASSIUM 4.5 mmol/L (3.5-5.1); SODIUM 137 mmol/L (136-145)
--- NOTE | 2018-07-18 09:05 | Diagnostic Imaging Report ---
EXAM: Right upper quadrant abdominal ultrasound INDICATION: Right upper quadrant pain COMPARISON: CT abdomen/pelvis 03/12/2018. TECHNIQUE: Transverse and longitudinal images of the right upper quadrant abdomen were obtained FINDINGS: Liver: Size: Measures 13.5 cm in the right midclavicular line, normal Appearance: Normal echogenicity, smooth contour Mass: No focal masses Gallbladder: There is mild gallbladder sludge. No distension, pericholecystic fluid, wall thickening, stone, or reported sonographic Ji's sign. Gallbladder wall measures 0.2 cm. Bile Ducts: Intrahepatic Ducts: No dilatation Extrahepatic Ducts: Common bile duct measures 0.3 cm, no dilatation Pancreas: Partially visualized pancreas is unremarkable. Kidney: The right kidney measures 10.0 cm without evidence of hydronephrosis or stone. Vessels: Aorta: Visualized portions are normal Inferior Vena Cava: Visualized portions are normal Main Portal Vein: Measures 0.7 cm, normal size with hepatopetal flow. Free Fluid: No evidence of ascites. IMPRESSION: Mild gallbladder sludge without sonographic evidence of cholelithiasis or cholecystitis. Signed by: Dr. Latricia Lugo MD on 07/18/2018 9:02 AM
== END ==
LOC: US 07:26
PROVIDERS: ATTEND Surgery
DX: R10.11 Right upper quadrant pain (principal)
CPT/HCPCS: 36415; 76705; 80053; 85025; 93005

== ENCOUNTER → 2018-07-25 | Day surgery (SDC) | payer BC ==
[~2018-07-25] MED LIST changes: +ACETAMINOPHEN 1000 MG/100 ML 100 ML IV ONE; +BUPIVACAINE 0.5%/EPI 30 ML SDV INJ ONE; +DEXAMETHASONE SOD PHOS INJ 4 MG/ML VIAL ONE; +FENTANYL CITRATE/PF 100MCG/2 ML INJ ONE; +HYDROMORPHONE 2MG/ML 2 MG/ML ML ONE; +LIDOCAINE HCL 2% LOCAL INJ 5 ML SDV VIAL INJ ONE; +METOPROLOL SUCC25 MG PO; +MIDAZOLAM HCL 2 MG/2 ML VIAL ONE; +ONDANSETRON HCL 4 MG ORAL DISINTEGRATING TAB ONE; +ONDANSETRON HCL INJ 2MG/ML 2ML 2 MG/ML VIAL ONE; +PROPOFOL IV EMULSION 10 MG/ML 20 ML VIAL ONE; +ROCURONIUM BROMIDE 10 MG/ML 5ML VIAL ONE; +SEVOFLURANE INHAL SOLN 250 ML PEN BTL ONE; +SUCCINYLCHOLINE 200 MG/10 ML SYR ONE; +VASOTEC10 MG PO
--- NOTE | 2018-07-25 13:02 | Operative Report ---
DATE OF PROCEDURE: July 25, 2018 PREOPERATIVE DIAGNOSIS: Biliary dyskinesia. POSTOPERATIVE DIAGNOSIS: Biliary dyskinesia. PROCEDURE PERFORMED: Laparoscopic cholecystectomy. ANESTHESIA: General endotracheal. ESTIMATED BLOOD LOSS: Minimal. DRAINS: None. COMPLICATIONS: None. INDICATIONS AND FINDINGS: Patient is 63-year-old female complaining of right upper quadrant pain associated with fatty food, nausea and some constipation. The patient had last year underwent appendicitis after undergoing colonoscopy. She was found to have acute appendicitis at that time. The colonoscopy did not show any malignancy. The patient was worked up by Dr. Sow and had an ejection fraction of 13%. She had no stones by ultrasound, but there was some sludge. After all the GI workup was completed, the patient was taken to the operating room for laparoscopic cholecystectomy. She and her family understood that I could not guarantee all of her symptoms would go away as she was also complaining of some left-sided abdominal pain. After having discussed this with her and with her state game protector, it was decided at the patient's request to proceed with laparoscopic cholecystectomy. She understood that if other symptoms persisted and they were bothersome, she would then be followed up by state game protector. INTRAOPERATIVE FINDINGS: The patient had a large long gallbladder that appeared to be grossly normal. There was some reaction and fibrosis in the area of the cystic duct and hepatoduodenal ligament. There was no ductal dilatation. The right lower quadrant was free of any adhesions as was the abdomen from the previous appendectomy. The gallbladder though it appeared normal, it was rather long, otherwise unremarkable. DESCRIPTION OF PROCEDURE: With the patient lying on the operating table in the supine position and after administration of general endotracheal anesthesia, she was prepped and draped for laparoscopic cholecystectomy. The procedure was begun by establishing a pneumoperitoneum in the umbilical site after a stab wound was made in that location. The saline drop test was performed. A pneumoperitoneum was insufflated to 15 mm of pressure. Then the 10/11 camera placed in that location. The patient was rotated to left and with the head up, a 10 mm subxiphoid port was placed. Then finally 2 right upper quadrant ports were placed in the right midclavicular line and right anterior axillary line. The gallbladder was retracted cephalad using grasping forceps through the two 5-mm trocars. As previously stated, it was rather large and appeared to be grossly normal. We began the dissection in the hepatorenal ligament. There was some reaction and fibrosis in that area, but we were able to identify the cystic duct, as well as the common duct and the common hepatic duct. We identified the cystic artery and a of the liver. At this point, after having completed the triangle of safety, we clipped the cystic duct distally twice and then proximally once, and then the cystic artery was transected between titanium clips also. Then we took the gallbladder down from the liver bed using electrocautery dissection. After we did that, we inspected the operative field. We irrigated the gallbladder bed fossa after ascertaining that there was no bile leak. No bleeding. No apparent bowel injury. We released the pneumoperitoneum and closed the wounds using 0 Vicryl for the umbilical fascia, 3-0 Vicryl for the subcutaneous tissue in that location, as well as the subxiphoid port. The skin of all the ports were closed with joseph. Then 0.25% Marcaine with epinephrine was given as a local block. The patient tolerated the procedure well and taken to the recovery room in stable condition. Job#: [id number] SISI
[2018-07-25 14:15] VITALS: BP 110/59
== END | disposition home or self-care (01) ==
LOC: OR 09:06
PROVIDERS: ATTEND Surgery
DX: K82.8 Other specified diseases of gallbladder (principal); K21.9 Gastro-esophageal reflux disease without esophagitis; I10 Essential (primary) hypertension
CPT/HCPCS: 47562; 88304; C1766; J0131; J1100; J1170; J2001; J2250; J2405; J2704; Q0162

== ENCOUNTER 2018-09-06 19:18 | Emergency (ER) | payer BC ==
[~2018-09-06] VITALS: Ht 149.9 cm; Wt 64.9 kg
[~2018-09-06 19:18] MED LIST changes: -ACETAMINOPHEN 1000 MG/100 ML 100 ML IV ONE; -BUPIVACAINE 0.5%/EPI 30 ML SDV INJ ONE; -DEXAMETHASONE SOD PHOS INJ 4 MG/ML VIAL ONE; -FENTANYL CITRATE/PF 100MCG/2 ML INJ ONE; -HYDROMORPHONE 2MG/ML 2 MG/ML ML ONE; -LIDOCAINE HCL 2% LOCAL INJ 5 ML SDV VIAL INJ ONE; -MIDAZOLAM HCL 2 MG/2 ML VIAL ONE; -ONDANSETRON HCL 4 MG ORAL DISINTEGRATING TAB ONE; -ONDANSETRON HCL INJ 2MG/ML 2ML 2 MG/ML VIAL ONE; -PROPOFOL IV EMULSION 10 MG/ML 20 ML VIAL ONE; -ROCURONIUM BROMIDE 10 MG/ML 5ML VIAL ONE; -SEVOFLURANE INHAL SOLN 250 ML PEN BTL ONE; -SUCCINYLCHOLINE 200 MG/10 ML SYR ONE
[2018-09-06] MEDS ORDERED: KETOROLAC TROMETHAMINE 30 MG/ML VIAL IV ONE (20:00)
[2018-09-06] MEDS ORDERED: ONDANSETRON HCL INJ 2MG/ML 2ML 2 MG/ML VIAL IV ONE (20:00)
[2018-09-06 20:39] LABS: BASOPHILS % 0.7 % (0.0-1.0); EOSINOPHILS # (AUTO) 0.2 (0.0-0.4); EOSINOPHILS % 3.6 % (0.0-6.0); HEMATOCRIT 42.6 % (34.2-44.1); HEMOGLOBIN 14.3 g/dL (12.0-16.0); LYMPHOCYTES # (AUTO) 1.7 (1.0-3.2); LYMPHOCYTES % 28.7 % (18.0-39.1); MEAN CORPUSCULAR HEMOGLOBIN 33.6 pg (28-32); MEAN CORPUSCULAR HGB CONC 33.6 g/dL (31-35); MEAN CORPUSCULAR VOLUME 100.2 fL (81-99); MONOCYTES # (AUTO) 0.7 (0.2-0.8); MONOCYTES % 11.4 % (4.4-11.3); NEUTROPHILS # (AUTO) 3.3 (2.1-6.9); NEUTROPHILS % 55.1 % (38.7-80.0); PLATELET COUNT 183 x10e3/uL (140-360); RED BLOOD COUNT 4.25 x10e6/uL (3.6-5.1); RED CELL DISTRIBUTION WIDTH 12.5 % (11.7-14.4)
[2018-09-06 20:43] LABS: BILIRUBIN,URINE NEGATIVE (NEGATIVE); CLARITY,URINE HAZY (CLEAR); COLOR,URINE YELLOW (YELLOW); KETONES,URINE TRACE (NEGATIVE); LEUKOCYTE ESTERASE ,URINE NEGATIVE (NEGATIVE); NITRITE,URINE NEGATIVE (NEGATIVE); PROTEIN,URINE DIPSTICK NEGATIVE (NEGATIVE); URINE UROBILINOGEN 0.2 mg/dL (0.2 - 1)
[2018-09-06 20:50] LABS: BACTERIA,URINE MODERATE /HPF; EPITHELIAL CELLS,URINE MODERATE /LPF; WBC,URINE (MAN) 0-5 /HPF (0-5)
[2018-09-06 20:51] LABS: YEAST,URINE RARE
[2018-09-06 20:58] LABS: ALANINE AMINOTRANSFERASE 18 IU/L (0-55); ALBUMIN/GLOBULIN RATIO 1.3 (0.8-2.0); ALKALINE PHOSPHATASE 84 IU/L (40-150); AMYLASE 69 U/L (25-125); ANION GAP 11.3 mmol/L (8-16); BLOOD UREA NITROGEN 11 mg/dL (7-26); BUN/CREATININE RATIO 12 (6-25); CALCIUM 9.2 mg/dL (8.4-10.2); CARBON DIOXIDE 24 mmol/L (22-29); CHLORIDE 107 mmol/L (98-107); CREATINE KINASE 53 IU/L (29-168); CREATININE, SERUM 0.89 mg/dL (0.57-1.11); EST GLOMERULAR FILTRATION RATE > 60 ML/MIN (60-); GLUCOSE 112 mg/dL (74-118); LIPASE 44 U/L (8-78); POTASSIUM 4.3 mmol/L (3.5-5.1); SODIUM 138 mmol/L (136-145)
[2018-09-06] MEDS ORDERED: SODIUM CHLORIDE 0.9% 50ML 50 ML ONE (21:00)
[2018-09-06] MEDS ORDERED: IOPAMIDOL 370 MG/ML 200 ML INFUS..BTL INJ ONE (21:01)
--- NOTE | 2018-09-06 22:02 | Diagnostic Imaging Report ---
EXAM: CT Abdomen and Pelvis WITH contrast INDICATION: left side abdominal pain COMPARISON: CT abdomen and pelvis 03/12/2018 TECHNIQUE: Abdomen and pelvis were scanned utilizing a multidetector helical scanner from the lung base to the pubic symphysis after administration of IV contrast. Coronal and sagittal reformations were obtained. Routine protocol was performed. Scan was performed when during portal venous phase. IV CONTRAST: 100 mL of Isovue-370 ORAL CONTRAST: Water COMPLICATIONS: None RADIATION DOSE: Total DLP: 247 mGy*cm Estimated effective dose: (DLP x 0.015 x size factor) mSv Dose modulation, iterative reconstruction, and/or weight based adjustment of the mA/kV was utilized to reduce the radiation dose to as low as reasonably achievable. FINDINGS: LINES and TUBES: None. LOWER THORAX: Unremarkable HEPATOBILIARY: No focal hepatic lesions. No biliary ductal dilation. GALLBLADDER: Absent SPLEEN: No splenomegaly. PANCREAS: No focal masses or ductal dilatation. ADRENALS: No adrenal nodules KIDNEYS/URETERS: Kidneys enhance symmetrically. No hydronephrosis. No cystic or solid mass lesions. No stones. GI TRACT: No abnormal distention, wall thickening, or evidence of bowel obstruction. Appendectomy. PELVIC ORGANS/BLADDER: Unremarkable. LYMPH NODES: No lymphadenopathy. VESSELS: There is mild atherosclerotic disease in the aorta and major arterial branches. PERITONEUM / RETROPERITONEUM: No free air or fluid. BONES: There are mild degenerative changes in the lumbar spine. SOFT TISSUES: Stable right gluteal fat necrosis and bilateral gluteal calcifications. IMPRESSION: No acute abnormalities. Signed by: DR. Leif Villafuerte MD on 09/06/2018 9:58 PM
[2018-09-06 22:33] VITALS: BP 132/70
== END 2018-09-06 22:38 | disposition home or self-care (01) ==
LOC: ER 19:18
DX: R10.32 Left lower quadrant pain (principal); R11.0 Nausea; I10 Essential (primary) hypertension; E78.5 Hyperlipidemia, unspecified; K21.9 Gastro-esophageal reflux disease without esophagitis
CPT/HCPCS: 36415; 74177; 80053; 81001; 82150; 82550; 82553; 83690; 84484; 85025; 93005; 99284; J1885; J2405; Q9967

== ENCOUNTER → 2019-07-07 | Day surgery (SDC) | payer BC ==
[~2019-07-07] MED LIST changes: +PROPOFOL IV EMULSION 10 MG/ML 50 ML VIAL ONE
[2019-07-07 12:30] VITALS: BP 122/79
== END | disposition home or self-care (01) ==
LOC: OR 07:46
PROVIDERS: ATTEND Internal Medicine Gastroenterology
DX: K29.70 Gastritis, unspecified, without bleeding (principal); D12.4 Benign neoplasm of descending colon; D12.5 Benign neoplasm of sigmoid colon; K21.9 Gastro-esophageal reflux disease without esophagitis; K44.9 Diaphragmatic hernia without obstruction or gangrene; K59.04 Chronic idiopathic constipation; K64.8 Other hemorrhoids; M54.9 Dorsalgia, unspecified; R05 Cough; R06.83 Snoring; I10 Essential (primary) hypertension; E78.5 Hyperlipidemia, unspecified; Z01.810 Encounter for preprocedural cardiovascular examination
CPT/HCPCS: 43239; 45380; 45384; 93005; J2704

== ENCOUNTER 2020-03-04 07:30 | Emergency (ER) | payer BC ==
[~2020-03-04] VITALS: Ht 149.9 cm; Wt 64.9 kg
[~2020-03-04 07:30] MED LIST changes: -PROPOFOL IV EMULSION 10 MG/ML 50 ML VIAL ONE
[2020-03-04] MEDS ORDERED: MORPHINE SULFATE INJ 4 MG/ML INJ 1ML IV STA (07:51)
[2020-03-04] MEDS ORDERED: SODIUM CHLORIDE 0.9% 1000ML 1,000 ML IV STA (07:51)
[2020-03-04] MEDS ORDERED: ONDANSETRON HCL INJ 2MG/ML 2ML 2 MG/ML VIAL IV STA (07:51)
[2020-03-04] MEDS ORDERED: PANTOPRAZOLE 40 MG 10ML VIAL IV STA (07:51)
[2020-03-04] MEDS ORDERED: DIATRIZOATE MEGL/DIATRIZOA SOD 30 ML BTL PO ONE (08:05)
[2020-03-04 08:43] LABS: BASOPHILS % 0.4 % (0.0-1.0); EOSINOPHILS # (AUTO) 0.1 (0.0-0.4); EOSINOPHILS % 0.8 % (0.0-6.0); HEMATOCRIT 47.3 % (34.2-44.1); HEMOGLOBIN 15.5 g/dL (12.0-16.0); LYMPHOCYTES # (AUTO) 1.9 (1.0-3.2); MEAN CORPUSCULAR HEMOGLOBIN 32.6 pg (28-32); MEAN CORPUSCULAR HGB CONC 32.8 g/dL (31-35); MEAN CORPUSCULAR VOLUME 99.4 fL (81-99); MONOCYTES # (AUTO) 0.8 (0.2-0.8); MONOCYTES % 10.3 % (4.4-11.3); PLATELET COUNT 195 x10e3/uL (140-360); RED BLOOD COUNT 4.76 x10e6/uL (3.6-5.1); RED CELL DISTRIBUTION WIDTH 12.5 % (11.7-14.4)
[2020-03-04 08:45] LABS: BILIRUBIN,URINE NEGATIVE (NEGATIVE); CLARITY,URINE HAZY (CLEAR); COLOR,URINE YELLOW (YELLOW); KETONES,URINE NEGATIVE (NEGATIVE); LEUKOCYTE ESTERASE ,URINE NEGATIVE (NEGATIVE); NITRITE,URINE NEGATIVE (NEGATIVE); PROTEIN,URINE DIPSTICK NEGATIVE (NEGATIVE); URINE UROBILINOGEN 0.2 mg/dL (0.2 - 1)
[2020-03-04 08:58] LABS: RBC,URINE 0-5 /HPF (0-5)
[2020-03-04 08:59] LABS: BACTERIA,URINE MODERATE /HPF; EPITHELIAL CELLS,URINE FEW /LPF; MUCUS,URINE FEW (RARE)
[2020-03-04 09:04] LABS: ALANINE AMINOTRANSFERASE 22 IU/L (0-55); ALBUMIN 4.7 g/dL (3.5-5.0); ALBUMIN/GLOBULIN RATIO 1.6 (0.8-2.0); ALKALINE PHOSPHATASE 87 IU/L (40-150); AMYLASE 59 U/L (25-125); ANION GAP 15.3 mmol/L (8-16); BLOOD UREA NITROGEN 12 mg/dL (7-26); BUN/CREATININE RATIO 13 (6-25); CALCIUM 9.4 mg/dL (8.4-10.2); CARBON DIOXIDE 25 mmol/L (22-29); CHLORIDE 101 mmol/L (98-107); CREATINE KINASE 40 IU/L (29-168); CREATININE, SERUM 0.93 mg/dL (0.57-1.11); EST GLOMERULAR FILTRATION RATE > 60 ML/MIN (60-); GLUCOSE 147 mg/dL (74-118); LIPASE 31 U/L (8-78); POTASSIUM 4.3 mmol/L (3.5-5.1); SODIUM 137 mmol/L (136-145)
--- NOTE | 2020-03-04 09:09 | Diagnostic Imaging Report ---
TECHNIQUE: Frontal view of the chest. INDICATION: ^abd pain ^[id number] ^0807 COMPARISON: None DISCUSSION: Limited evaluation due to portable technique. Lines and hardware: None Heart and mediastinum: Within normal limits. Lungs and pleura: No focal airspace consolidation. No pleural effusion. No pneumothorax. Soft tissues and bones: No acute abnormality. IMPRESSION: Negative for acute intrathoracic process. Signed by: Buck Arambula MD on 03/04/2020 9:06 AM
[2020-03-04] MEDS ORDERED: SODIUM CHLORIDE 0.9% 50ML 50 ML ONE (09:19)
[2020-03-04] MEDS ORDERED: IOPAMIDOL 370 MG/ML 200 ML INFUS..BTL INJ ONE (09:19)
[2020-03-04 09:28] LABS: INR 0.9; PROTHROMBIN TIME 12.6 seconds (11.9-14.5)
[2020-03-04] MEDS ORDERED: PIPER-TAZ 3.375 GM 50 ML IV ONE (09:45)
[2020-03-04] MEDS ORDERED: LIDOCAINE VISC 2% SOLN 15 ML UDC PO ONE (11:15)
[2020-03-04] MEDS ORDERED: BELLADONNA ALK/PHENOBARBITAL 5 ML UDC PO ONE (11:15)
[2020-03-04] MEDS ORDERED: MAGNESIUM/ALUMINUM/SIMETHICONE 30 ML UDC PO ONE (11:15)
--- NOTE | 2020-03-04 11:55 | Diagnostic Imaging Report ---
CT of the abdomen and pelvis with contrast TECHNIQUE: CT of the abdomen and pelvis WITH intravenous contrast and WITH oral contrast. Dose modulation, iterative reconstruction, and/or weight-based adjustment of the mA/kV was utilized to reduce the radiation dose to as low as reasonably achievable. IV CONTRAST: 100 mL of Isovue-370 ORAL CONTRAST: Gastrografin RADIATION DOSE: Total DLP: 268 mGy*cm COMPLICATIONS: None INDICATION: ^yary, llq abd pain ^[id number] ^102. COMPARISON: 09/06/2018. FINDINGS: LOWER THORAX: Basilar dependent subsegmental atelectasis is noted.. HEPATOBILIARY: No focal hepatic lesions. Gallbladder is surgically absent. No biliary ductal dilatation. SPLEEN: No splenomegaly. PANCREAS: No focal masses or ductal dilatation. ADRENALS: No adrenal nodules. KIDNEYS/URETERS: No hydronephrosis, stones, or masses. PELVIC ORGANS/BLADDER: Urinary bladder is moderately distended. Uterus and ovaries are unremarkable. Negative for pelvic free fluid. PERITONEUM/RETROPERITONEUM: No free air or fluid. LYMPH NODES: No lymphadenopathy. VESSELS: Negative for abdominal aortic aneurysm. GI TRACT: Oral contrast is visualized within the stomach and proximal small bowel loops. Negative for gastric wall thickening. Small bowel loops are not dilated. Postsurgical changes from appendectomy are noted. No surrounding inflammatory changes are noted. Mild to moderate retained colonic stool is noted throughout the transverse and ascending colon. BONES AND SOFT TISSUES: Negative for acute osseous abnormality soft tissues are unremarkable. Stable bilateral gluteal calcifications, likely related to injections or prior trauma. IMPRESSION: Negative for acute abdominopelvic process. Stable postsurgical changes from cholecystectomy.. Signed by: Buck Arambula MD on 03/04/2020 11:52 AM
--- NOTE | 2020-03-04 11:57 | Emergency Department Note ---
History of Present Illnes History of Present Illness Chief Complaint: Abdominal Complaints History of Present Illness This is a 64 year old female PATIENT IN FROM HOME WITH COMPLAINTS OF PAIN FROM GASTRITIS; STATES SHE HAS HAD THIS ISSUE FOR 2-3 YEARS AND WAS DIAGNOSED WITH GASTRITIS AND REFLUX; STATES THAT SHE CALLED HER PRIMARY CARE PHYSICIAN YESTERDAY AND WAS REFERRED TO GI, BUT DOES NOT HAVE AN APPOINTMENT YET. RATES PAIN 8/10 AT THIS TIME, APPEARS IN NO DISTRESS, RESP EVEN AND NONLABORED, AMBULATORY WITHOUT ASSISTANCE. Historian: Patient Arrival Mode: Car Shafting Worker Required: No Onset (how long ago): year(s) Location: [facility] Quality: BURNING PAIN Radiation: Reports non-radiation Severity: moderate Onset quality: gradual Timing of current episode: intermittent Progression: waxing and waning Chronicity: chronic Context: Denies recent illness Relieving factors: none Exacerbating factors: none Past Medical/Family History Physician Review I have reviewed the patient's past medical and family history. Any updates have been documented here. Past Medical History Recent Fever: No Clinical Suspicion of Infectio: No New/Unexplained Change in Ment: No Past Medical History: Hypertension, GERD, Hyperlipedemia Other Medical History: CYSTITIS REFLUX Past Surgical History: Cholecysctectomy, Appendectomy Other Surgery: (R) KNEE SX EGD(03/12) Social History Smoking Cessation: Never Smoker Counseling Performed: No Alcohol Use: None Any Illegal Drug Use: No TB Exposure/Symptoms: No Physically hurt or threatened: No Family History Family history of heart diseas: No Other Last Tetanus: unknown Any Pre-Existing Lines (PICC,: No Review of Systems Review of Systems Constitutional: Reports no symptoms EENTM: Reports no symptoms Cardiovascular: Reports no symptoms Respiratory: Reports no symptoms Gastrointestinal: Reports as per HPI Genitourinary: Reports no symptoms Musculoskeletal: Reports no symptoms Integumentary: Reports no symptoms Neurological: Reports no symptoms Psychological: Reports no symptoms Endocrine: Reports no symptoms Hematological/Lymphatic: Reports no symptoms Physical Exam Related Data Allergies: Coded Allergies: No Known Allergies (Unverified , 03/04/20) Triage Vital Signs Vital Signs Date Time Temp Pulse Resp B/P (MAP) Pulse Ox O2 Delivery O2 Flow Rate FiO2 03/04/20 07:39 97.8 78 18 132/76 100 Room Air Vital signs reviewed: Yes Physical Exam CONSTITUTIONAL Constitutional: Present well-developed, Present well-nourished HENT HENT: Present normocephalic, Present atraumatic, Present oropharynx clear/ moist, Present nose normal HENT L/R: Present left ext ear normal, Present right ext ear normal EYES Eyes: Reports PERRL, Reports conjunctivae normal NECK Neck: Present ROM normal PULMONARY Pulmonary: Present effort normal, Present breath sounds normal CARDIOVASCULAR Cardiovascular: Present regular rhythm, Present heart sounds normal, Present capillary refill normal, Present normal rate GASTROINTESTINAL Abdominal: Present soft, Present bowel sounds normal, Present tender (TENDER VICENTA/LUQ/LLQ WITH NO R/G); Absent guarding, Absent mass, Absent rebound GENITOURINARY Genitourinary: Present exam deferred SKIN Skin: Present warm, Present dry MUSCULOSKELETAL Musculoskeletal: Present ROM normal NEUROLOGICAL Neurological: Present alert, Present oriented x 3, Present no gross motor or sensory deficits PSYCHOLOGICAL Psychological: Present mood/affect normal, Present judgement normal Results Laboratory Result Diagram: 03/04/20 0745 03/04/20 0745 Laboratory Laboratory Tests Test 03/04/20 07:45 White Blood Count 7.95 x10e3/uL (4.8-10.8) Red Blood Count 4.76 x10e6/uL (3.6-5.1) Hemoglobin 15.5 g/dL (12.0-16.0) Hematocrit 47.3 % (34.2-44.1) Mean Corpuscular Volume 99.4 fL (81-99) Mean Corpuscular Hemoglobin 32.6 pg (28-32) Mean Corpuscular Hemoglobin Concent 32.8 g/dL (31-35) Red Cell Distribution Width 12.5 % (11.7-14.4) Platelet Count 195 x10e3/uL (140-360) Neutrophils (%) (Auto) 63.0 % (38.7-80.0) Lymphocytes (%) (Auto) 24.0 % (18.0-39.1) Monocytes (%) (Auto) 10.3 % (4.4-11.3) Eosinophils (%) (Auto) 0.8 % (0.0-6.0) Basophils (%) (Auto) 0.4 % (0.0-1.0) Neutrophils # (Auto) 5.0 (2.1-6.9) Lymphocytes # (Auto) 1.9 (1.0-3.2) Monocytes # (Auto) 0.8 (0.2-0.8) Eosinophils # (Auto) 0.1 (0.0-0.4) Basophils # (Auto) 0.0 (0.0-0.1) Absolute Immature Granulocyte (auto 0.12 x10e3/uL (0-0.1) Prothrombin Time 12.6 seconds (11.9-14.5) Prothromb Time International Ratio 0.90 Activated Partial Thromboplast Time 23.0 seconds (23.8-35.5) Urine Color Yellow (YELLOW) Urine Clarity Hazy (CLEAR) Urine pH 6 (5 - 7) Urine Specific [place] 1.025 (1.010-1.025) Urine Protein Negative (NEGATIVE) Urine Glucose (UA) Negative (NEGATIVE) Urine Ketones Negative (NEGATIVE) Urine Blood Moderate (NEGATIVE) Urine Nitrite Negative (NEGATIVE) Urine Bilirubin Negative (NEGATIVE) Urine Urobilinogen 0.2 mg/dL (0.2 - 1) Urine Leukocyte Esterase Negative (NEGATIVE) Urine RBC 0-5 /HPF (0-5) Urine WBC 11-20 /HPF (0-5) Urine Epithelial Cells Few /LPF (NONE) Urine Bacteria Moderate /HPF (NONE) Urine Mucus Few (RARE) Sodium Level 137 mmol/L (136-145) Potassium Level 4.3 mmol/L (3.5-5.1) Chloride Level 101 mmol/L (98-107) Carbon Dioxide Level 25 mmol/L (22-29) Anion Gap 15.3 mmol/L (8-16) Blood Urea Nitrogen 12 mg/dL (7-26) Creatinine 0.93 mg/dL (0.57-1.11) Estimat Glomerular Filtration Rate > 60 ML/MIN (60-) BUN/Creatinine Ratio 13 (6-25) Glucose Level 147 mg/dL (74-118) Calcium Level 9.4 mg/dL (8.4-10.2) Total Bilirubin 0.9 mg/dL (0.2-1.2) Aspartate Amino Transf (AST/SGOT) 24 IU/L (5-34) Alanine Aminotransferase (ALT/SGPT) 22 IU/L (0-55) Alkaline Phosphatase 87 IU/L (40-150) Creatine Kinase 40 IU/L (29-168) Creatine Kinase MB 0.50 ng/mL (0-5.0) Troponin I 0.008 ng/mL (0-0.300) Total Protein 7.6 g/dL (6.5-8.1) Albumin 4.7 g/dL (3.5-5.0) Globulin 2.9 g/dL (2.3-3.5) Albumin/Globulin Ratio 1.6 (0.8-2.0) Amylase Level 59 U/L (25-125) Lipase 31 U/L (8-78) Lab results reviewed: Yes Imaging Imaging results reviewed: Yes Procedures 12 Lead ECG Interpretation ECG Interpretation : ECG: ECG 1 Shafting Worker: Interpreted by ED physician Date: Mar 04, 2020 Time: 07:57 Rhythm: sinus rhythm Rate: normal BPM: 74 QRS axis: normal ST segments normal: Yes T waves normal: Yes Clinical Impression: normal ECG Assessment & Plan Medical Decision Making MDM H/O GASTRITIS WORSENING SX AND TENDER LLQ/LUQ/VICENTA - CHECK CBC, CHEM, MARIANO/LIPASE, ECG, CARDIACS, UA - R/O DIVERTICULITIS, UTI, COLITIS, PANCREATITIS Reassessment Reassessment IMPROVED WITH GI COCKTAIL, CT NEGATIVE, DC HOME WITH BENTYL, CEFTIN 500 BID X 7 DAYS, F/U PCP AND GI Assessment & Plan Final Impression: (1) Gastritis Depart Disposition: HOME, SELF-CARE Last Vital Signs Date Time Temp Pulse Resp B/P (MAP) Pulse Ox O2 Delivery O2 Flow Rate FiO2 03/04/20 07:39 97.8 78 18 132/76 100 Room Air Home Meds Reported Medications Metoprolol Succinate (METOPROLOL SUCCINATE) 25 Mg Tab.er.24h, 25 MG PO Q12H 07/24/18 Enalapril Maleate (VASOTEC) 10 Mg Tab, 100 MG PO HS, TAB 07/24/18 Medications in the ED Pantoprazole Sodium 40 mg ONCE STAT IV Last administered on 03/04/20at 09:07; Admin Dose 40 MG; Start 03/04/20 at 07:51; Stop 03/04/20 at 08:00; Status DC Morphine Sulfate 4 mg ONCE STAT IV Last administered on 03/04/20at 09:07; Admin Dose 4 MG; Start 03/04/20 at 07:51; Stop 03/04/20 at 08:02; Status DC Ondansetron HCl 4 mg ONCE STAT IV Last administered on 03/04/20at 09:08; Admin Dose 4 MG; Start 03/04/20 at 07:51; Stop 03/04/20 at 08:00; Status DC Sodium Chloride 1,000 ml @ 0 mls/hr Q0M STAT IV Last administered on 03/04/20at 09:08; Admin Dose 1,000 MLS/HR; Start 03/04/20 at 07:51; Stop 03/04/20 at 07:53; Status DC Diatrizoate Meglum/ Diatrizoate Sod 30 ml STK-MED ONCE PO ; Start 03/04/20 at 08:05; Stop 03/04/20 at 07:59; Status DC Sodium Chloride 50 ml @ ud STK-MED ONCE .ROUTE ; Start 03/04/20 at 09:19; Stop 03/04/20 at 09:13; Status DC Iopamidol 74,000 mg STK-MED ONCE INJ ; Start 03/04/20 at 09:19; Stop 03/04/20 at 09:13; Status DC Piperacillin Sod/ Tazobactam Sod 50 ml @ 50 mls/hr NOW ONCE IV Last administered on 03/04/20at 10:27; Admin Dose 50 MLS/HR; Start 03/04/20 at 09:45; Stop 03/04/20 at 10:44; Status DC Magnesium Aluminum Silicate 30 ml ONCE ONCE PO ; Start 03/04/20 at 11:15; Stop 03/04/20 at 11:16; Status DC Belladonna Alkaloids/ Phenobarbital 10 ml ONCE ONCE PO ; Start 03/04/20 at 11:15; Stop 03/04/20 at 11:16; Status DC Lidocaine HCl 10 ml ONCE ONCE PO ; Start 03/04/20 at 11:15; Stop 03/04/20 at 11:16; Status DC CRISTINE BROTHERS MD Mar 04, 2020 11:57
[2020-03-04 12:44] VITALS: BP 134/63
--- OUTSIDE RECORDS SUMMARY | 2020-03-06 16:08 | XMS REPORT | Continuity of Care Document ---
Author Author [facility] t Organization Formerly [facility] Address [address] [place] [address] Phone Unavailable Care Team Providers Care Project Analyst Name Role Phone DENNIS HOPSON, MD [place]a GAFFNEY PCP Augusta BROTHERS Attphys Unavailable SHERRI, KERRI Attphys Unavailable DACCAK, RUKAN Attphys Unavailable Maria Victoria BARRIENTOS Attphys Unavailable CHYNA, PIERCE Attphys Unavailable Payers Payer Name Policy Type Policy Number Effective Date Expiration Date Benjamin godwin [facility] [id number] 2019 00:00:00 [facility] Problems Condition Name Condition Details Condition Category Status Onset Date Resolution Date Last Treatment Date Treating Clinician Comments Source Renal colic Renal colic Problem Active [facility] Appendicitis Appendicitis Problem Active [facility] Gastritis Problem Active [facility] Allergies, Adverse Reactions, Alerts This patient has no known allergies or adverse reactions. Social History Social Habit Start Date Stop Date Quantity Comments Source Sex Assigned At 1955 00:00:00 1955 00:00:00 Female [facility] Medications Ordered Medication Name Filled Medication Name Start Date Stop Da te Current Medication? Ordering Clinician Indication Dosage Frequency Signature (SIG) Comments Components Source Sucralfate (Carafate) 1 Gm/10 Ml ORAL.SUSP Sucralfate (Carafate) 1 Gm/10 Ml ORAL.SUSP 2018-02-06 23:27:00 2018-03-13 00:00:00 No 1 Daily as needed for Gi Upset [facility] Enalapril Maleate (Vasotec) 10 Mg TAB Enalapril Maleate (Vasotec) 1 0 Mg TAB Yes 100 Bedtime [facility] Metoprolol Succinate Metoprolol Succinate Yes 25 Every 12 Hours [facility] Acetaminophen With Codeine (Tylenol With Codeine #3 Ta blet) 1 Each TABLET Acetaminophen With Codeine (Tylenol With Codeine #3 Tablet) 1 Each TABLET 2018-07-24 00:00:00 No 300 Every 4 Hours as nee ded for Pain [facility] Enalapril Maleate Enalapril Maleate 2018-07-24 00:00:00 No 20 Twice A Day [facility] Ibgard Ibgard 2018-07-24 00:00:00 No 1 Three Times A Day as needed for Abdominal Pain [facility] Levofloxacin (Levaquin) 500 Mg TABLET Levofloxacin (Levaquin) 50 0 Mg TABLET 2018-07-24 00:00:00 No 500 Daily [facility] Metoprolol Succinate Metoprolol Succinate 2018-07-24 00:00:00 No 100 Daily [facility] Pantoprazole Sodium (Protonix) 40 Mg TABLET. Pantopr azole Sodium (Protonix) 40 Mg TABLET. 2018-07-24 00:00:00 No 40 Daily [facility] Promethazine Hcl Promethazine Hcl 2018-07-24 00:00:00 No 12.5 Every 12 Hours as needed for Pain [facility] Tramadol Hcl (Ultram 50MG*) 50 Mg TAB Tramadol Hcl (Ultram 50MG* ) 50 Mg TAB 2018-07-24 00:00:00 No 50 Twice A Day as neede d for Pain [facility] Aspirin (Aspirin Ec) 81 Mg TABLET. Aspirin (Aspirin Ec) 81 Mg TABLET. 2018-03-13 00:00:00 No 81 Daily [facility] Naproxen Naproxen 2018-03-13 00:00:00 No 375 Twice A Day [facility] Ondansetron (Zofran Odt) 4 Mg TAB.RAPDIS Ondansetron ( Zofran Odt) 4 Mg TAB.RAPDIS 2018-03-13 00:00:00 No 4 E very 6 Hours as needed for Nausea [facility] Dicyclomine Hcl (Bentyl) 10 Mg CAPSULE Dicyclomine Hcl (Bentyl) 10 Mg CAPSULE 2017-04-16 00:00:00 No 20 Every 6 Hours as nee ded for Abdominal Pain [facility] Levofloxacin (Levaquin) 500 Mg TABLET Levofloxacin (Levaquin) 50 0 Mg TABLET 2017-04-16 00:00:00 No 500 Daily [facility] Omeprazole (Prilosec) 20 Mg CAPSULE. Omeprazole (Prilosec) 20 Mg CAPSULE. 2017-04-16 00:00:00 No 20 As Needed [facility] Phenazopyridine Hcl (Pyridium) 100 Mg TABLET Phenazopy ridine Hcl (Pyridium) 100 Mg TABLET 2017-04-16 00:00:00 No 200 Three Times A Day [facility] Vvnesn-Jflcsruf-Nfap Jamvqo-Rbqqwfve-Cfgw 2014-08-28 00:00:00 No 1 Daily as needed for Headache [facility] Furosemide (Lasix) 40 Mg TABLET Furosemide (Lasix) 40 Mg TABLET 2013-07-03 00:00:00 No [facility] Pentosan Polysulfate Sodium (Elmiron) 100 Mg CAP Pento jackson Polysulfate Sodium (Elmiron) 100 Mg CAP 2013-07-03 00:00:00 No [facility] Calcium Carbonate (Calcium) 600 Mg TABLET Calcium Carb gio (Calcium) 600 Mg TABLET 2012-12-02 00:00:00 No 600 Four Times Daily [facility] Estradiol/Noreth Ac (Activella 0.5-0.1 Mg Tablet) 1 Ea ch TABLET Estradiol/Noreth Ac (Activella 0.5-0.1 Mg Tablet) 1 Each TABLET 2012-12-02 00:00:00 No Daily [facility] Vital Signs Vital Name Observation Time Observation Value Comments Source Body Temperature 2020-03-04 12:44:00 98.1 [degF] [facility] Weight 2020-03-04 07:39:00 143 [lb_av] [facility] BMI (Body Mass Index) 2020-03-04 07:39:00 28.9 kg/m2 [facility] Procedures Procedure Date / Time Performed Performing Clinician Jennifer e Computed tomography of abdomen and pelvis with contrast 00:00:00 [facility] EGD BIOPSY SINGLE/MULTIPLE 2019-07-07 00:00:00 [facility] COLONOSCOPY AND BIOPSY 2019-07-07 00:00:00 [facility] COLONOSCOPY W/LESION REMOVAL 2019-07-07 00:00:00 [facility] Plan of Care Planned Activity Planned Date Details Comments Source Instructions Abdominal Pain - Adult [facility] Instructions Urinary Tract Infection - Women [facility] Encounters Start Date/Time End Date/Time Encounter Type Admission Type Attendi [facility] Care Department Encounter ID Source 2020-03-04 08:00:00 2020-03-04 08:00:00 Registered Emergency Room 1 CRISTINE BROTHERS [facility] [id number] [facility] 2019-07-07 06:46:00 2019-07-07 06:46:00 Registered Surgical Day Care [facility] [id number] [facility] 2018-09-06 19:18:00 2018-09-06 22:38:00 Departed Emergency Room [address] [facility] [id number] [facility] 2018-07-25 09:06:00 2018-07-25 09:06:00 Registered Surgical Day Care [facility] [id number] [facility] 2018-07-18 07:26:00 2018-07-18 07:26:00 Registered Clinic [address] [facility] [id number] [facility] 2018-03-13 00:13:00 2018-03-14 18:03:00 Discharged Inpatient (obs) [address] [facility] [id number] [facility] 2018-02-06 21:56:00 2018-02-06 23:36:00 Depart[address] Emergency Room [facility] [id number] [facility] 2017-08-14 08:10:00 2017-08-14 08:10:00 Registered Clinic KERRI FUCHS [facility] [id number] [facility] 2017-04-16 08:34:00 2017-04-16 08:34:00 Registered Surgical Day Care [facility] [id number] [facility] Results Test Description Test Time Test Comments Results Result Comments Source CT ABDOMEN/PELVIS W 2020-03-04 11:47:00 [place] [address] Patient Name: PRIMITIVO POLLOCK MR #: [id number] : 1955 Age/Sex: 64/F Req #: [id number] Adm Physician: Ordered by: CRISTINE BROTHERS MD Report #: [id number] Location: ER Room/Bed: Procedure: [id number] CT/CT ABDOMEN/PELVIS W Exam Date: 03/04/20 Exam Time: 1021 REPORT STATUS: Signed CT of the abdomen and pelvis with contrast TECHNIQUE: CT of the abdomen and pelvis WITH intravenous contrast and WITH oral contrast. Dose modulation, iterative reconstruction, and/or weight-based adjustment of the mA/kV was utilized to reduce the radiation dose to as low as reasonably achievable. IV CONTRAST: 100 mL of Isovue-370 ORAL CONTRAST: Gastrografin RADIATION DOSE: Total DLP: 268 mGy*cm COMPLICATIONS: None INDICATION: yary, llq abd pain [id number] 102. COMPARISON: 09/06/2018. FINDINGS: LOWER THORAX: Basilar dependent subsegmental atelectasis is noted.. HEPATOBILIARY: No focal hepatic lesions. Gallbladder is surgically absent. No biliary ductal dilatation. SPLEEN: No splenomegaly. PANCREAS: No focal masses or ductal dilatation. ADRENALS: No adrenal nodules. KIDNEYS/URETERS: No hydronephrosis, stones, or masses. PELVIC ORGANS/BLADDER: Urinary bladder is moderately distended. Uterus and ovaries are unremarkable. Negative for pelvic free fluid. PERITONEUM/RETROPERITONEUM: No free air or fluid. LYMPH NODES: No lymphadenopathy. VESSELS: Negative for abdominal aortic aneurysm. GI TRACT: Oral contrast is visualized within the stomach and proximal small bowel loops. Negative for gastric wall thickening. Small bowel loops are not dilated. Postsurgical changes from appendectomy are noted. No surrounding inflammatory changes are noted. Mild to moderate retained colonic stool is noted throughout the transverse and ascending colon. BONES AND SOFT TISSUES: Negative for acute osseous abnormality soft tissues are unremarkable. Stable bilateral gluteal calcifications, likely related to injections or prior trauma. IMPRESSION: Negative for acute abdominopelvic process. Stable postsurgical changes from cholecystectomy.. Signed by: Lorenza Arambula MD on 03/04/2020 11:52 AM Dictated By: LORENZA ARAMBULA MD 1152 Transcribed By: GAVIN on 03/04/20 1152 COPY TO: CRISTINE BROTHERS MD CHEST SINGLE (PORTABLE) 2020-03-04 09:05:00 [place] [address] Patient Name: PRIMITIVO PLOLOCK MR #: [id number] : 1955 Age/Sex: 64/F Req #: [id number] Adm Physician: Ordered by: CRISTINE BROTHERS MD Report #: [id number] Location: ER Room/Bed: Procedure: [id number] DX/CHEST SINGLE (PORTABLE) Exam Date: 03/04/20 Exam Time: 806 REPORT STATUS: Signed TECHNIQUE: Frontal view of the chest. INDICATION: abd pain [id number] COMPARISON: None DISCUSSION: Limited evaluation due to portable technique. Lines and hardware: None Heart and mediastinum: Within normal limits. Lungs and pleura: No focal airspace consolidation. No pleural effusion. No pneumothorax. Soft tissues and bones: No acute abnormality. IMPRESSION: Negative for acute intrathoracic process. Signed by: Lorenza Arambula MD on 03/04/2020 9:06 AM Dictated By: LORENZA ARAMBULA MD 5 Transcribed By: GAVIN on 03/04/20905 COPY TO: CRISTINE BROTHERS MD Blood leukocytes automated count (number/volume) 2020-03-04 07:45:00 Test Item White Blood Count (test code = 6690-2) 7.95 4.8-10.8 [facility] erythrocytes automated count (number/volume)2020-03-04 07:45:00* Test Item Value Reference Range Interpretation Comments Red Blood Count (test code = 789-8) 4.76 3.6-5.1 [facility] hemoglobin measurement (moles/volume)2020-03-04 07:45:00* Test Item Value Reference Range Interpretation Comments Hemoglobin (test code = 73534-3) 15.5 12.0-16.0 [facility] TempleAutomated blood hematocrit (volume fraction)2020-03-04 07:45:00* Test Item Value Reference Range Interpretation Comments Hematocrit (test code = 4544-3) 47.3 34.2-44.1 [facility] TempleAutomated erythrocyte mean corpuscular iimbow1237-59-67 07:45:00* Test Item Value Reference Range Interpretation Comments Mean Corpuscular Volume (test code = 787-2) 99.4 81-99 [facility] Temple[facility] erythrocyte mean corpuscular hemoglobin (mass per erythrocyte)2020-03-04 07:45:00* Test Item Value Reference Range Interpretation Comments Mean Corpuscular Hemoglobin (test code = 785-6) 32.6 28-32 [facility] Temple[facility] erythrocyte mean corpuscular hemoglobin concentration measurement (mass/volume)2020-03-04 07:45:00* Test Item Value Reference Range Interpretation Comments Mean Corpuscular Hemoglobin Concent (test code = 786-4) 32.8 31-35 [facility] TempleRDW SlmWy-Vjw4871-42-25 07:45:00* Test Item Value Reference Range Interpretation Comments Red Cell Distribution Width (test code = 34001-0) 12.5 11.7 -14.4 [facility] Temple[facility] blood platelet count (count/volume)2020-03-04 07:45:00* Test Item Value Reference Range Interpretation Comments Platelet Count (test code = 777-3) 195 140-360 [facility] blood segmented neutrophil count as percentage of total vvugslgvob5651-80-17 07:45:00* Test Item Value Reference Range Interpretation Comments Neutrophils (%) (Auto) (test code = 85634-2) 63.0 38.7-80.0 [facility] Temple[facility] blood lymphocyte count as percentage ot total qsutulvaji7744-37-97 07:45:00* Test Item Value Reference Range Interpretation Comments Lymphocytes (%) (Auto) (test code = 736-9) 24.0 18.0-39.1 [facility] blood monocyte count as percentage of total hwtohgpuwl6723-72-02 07:45:00* Test Item Value Reference Range Interpretation Comments Monocytes (%) (Auto) (test code = 5905-5) 10.3 4.4-11.3 [facility] Temple[facility] blood eosinophil count as percentage of total jfyfdueder3115-22-90 07:45:00* Test Item Value Reference Range Interpretation Comments Eosinophils (%) (Auto) (test code = 713-8) 0.8 0.0-6.0 [facility] Temple[facility] blood basophil count as percentage of total ziieahftmi6921-83-50 07:45:00* Test Item Value Reference Range Interpretation Comments Basophils (%) (Auto) (test code = 706-2) 0.4 0.0-1.0 [facility] TempleFluoroscopic procedure less than one hour iwehlpfh8442-04-57 07:45:00* Test Item Value Reference Range Interpretation Comments IM GRANULOCYTES % (test code = IM GRANULOCYTES %) 1.5 0.0- 1.0 [facility] Temple[facility] blood neutrophil count 2020-03-04 07:45:00* Test Item Value Reference Range Interpretation Comments Neutrophils # (Auto) (test code = 751-8) 5.0 2.1-6.9 [facility] lymphocytes count (number/volume) 2020-03-04 07:45:00* Test Item Value Reference Range Interpretation Comments Lymphocytes # (Auto) (test code = 48368-2) 1.9 1.0-3.2 [facility] TempleBlood monocytes automated count (number/volume)2020-03-04 07:45:00* Test Item Value Reference Range Interpretation Comments Monocytes # (Auto) (test code = 742-7) 0.8 0.2-0.8 [facility] TempleAutom[facility] blood eosinophil count 2020-03-04 07:45:00* Test Item Value Reference Range Interpretation Comments Eosinophils # (Auto) (test code = 711-2) 0.1 0.0-0.4 [facility] TempleAutom[facility] blood basophil count (count/volume)2020-03-04 07:45:00* Test Item Value Reference Range Interpretation Comments Basophils # (Auto) (test code = 704-7) 0.0 0.0-0.1 [facility] TempleFluoroscopic procedure less than one hour gdtfuxwy9175-05-44 07:45:00* Test Item Value Reference Range Interpretation Comments Absolute Immature Granulocyte (auto (bailey t code = Absolute Immature Granulocyte (auto) 0.12 0-0.1 [facility] TempleProthrombin time (PT) in platelet poor plasma by coagulation ormpk1749-63-44 07:45:00* Test Item Value Reference Range Interpretation Comments Prothrombin Time (test code = 5902-2) 12.6 11.9-14.5 [facility] TempleINR in Platelet poor plasma by Coagulation dkims3594-37-65 07:45:00* Test Item Value Reference Range Interpretation Comments Prothromb Time International Ratio (test code = 6301-6) 0.90 Oral Anticoagulant Therapy INR Values:1. Low Intensity Therapy 1.5 - 2.02 . Moderate Intensity Therapy 2.0 - 3.03. High Intensity Therapy(1) 2.5 - 3. 54. High Intensity Therapy(2) 3.0 - 4.05. Panic Value INR > 5.0 [facility] TempleActivated partial thromboplastin time (aPTT) in platelet poor plasma by coagulation tdesc8611-37-58 07:45:00* Test Item Value Reference Range Interpretation Comments Activated Partial Thromboplast Time (test code = 05616-5) 23.0 23.8-35.5 [facility] TempleUrine color qupalbqkenfwf7355-11-63 07:45:00* Test Item Value Reference Range Interpretation Comments Urine Color (test code = 5778-6) YELLOW YELLOW [facility] TempleUrine nrfgbvv2836-69-22 07:45:00* Test Item Value Reference Range Interpretation Comments Urine Clarity (test code = 54757-4) HAZY CLEAR [facility]villepecific gravity of Urine by Test strip 2020-03-04 07:45:00* Test Item Value Reference Range Interpretation Comments Urine Specific [place] (test code = 5811-5) 1.025 1.010-1.02 5 [facility] Temple[facility] pH measurement by automated test znnph0651-48-12 07:45:00* Test Item Value Reference Range Interpretation Comments Urine pH (test code = 15110-8) 6 5-7 [facility] TempleUrine leukocyte esterase detection by pvccjvvq0892-58-84 07:45:00* Test Item Value Reference Range Interpretation Comments Urine Leukocyte Esterase (test code = 5799-2) NEGATIVE NEGATIVE [facility] TempleUrine nitrite nrbmgowkd4409-21-36 07:45:00* Test Item Value Reference Range Interpretation Comments Urine Nitrite (test code = 46376-8) NEGATIVE NEGATIVE [facility] TempleUrine protein measurement by test strip (mass/volume)2020-03-04 07:45:00* Test Item Value Reference Range Interpretation Comments Urine Protein (test code = 5804-0) NEGATIVE NEGATIVE [facility] TempleUrine glucose lcpnrsred5489-88-14 07:45:00* Test Item Value Reference Range Interpretation Comments Urine Glucose (UA) (test code = 2349-9) NEGATIVE NEGATIVE [facility] TempleUrine ketones detection by automated test ifklu7093-15-99 07:45:00* Test Item Value Reference Range Interpretation Comments Urine Ketones (test code = 83077-6) NEGATIVE NEGATIVE [facility] TempleUrine urobilinogen measurement by test strip (mass/volume)2020-03-04 07:45:00* Test Item Value Reference Range Interpretation Comments Urine Urobilinogen (test code = 16265-6) 0.2 0.2-1 [facility] Temple[facility] total bilirubin measurement (mass/volume)2020-03-04 07:45:00* Test Item Value Reference Range Interpretation Comments Urine Bilirubin (test code = 1978-6) NEGATIVE NEGATIVE [facility] TempleUrine erythrocytes gqswgbqrz9269-66-84 07:45:00* Test Item Value Reference Range Interpretation Comments Urine Blood (test code = 22125-9) MODERATE NEGATIVE [facility] TempleAutomated urine sediment leukocyte count by microscopy (number/high power field)2020-03-04 07:45:00* Test Item Value Reference Range Interpretation Comments Urine WBC (test code = 5821-4) 11-20 0-5 [facility] TempleErythrocytes detection in urine sediment by light lkltqkkcvu4973-00-16 07:45:00* Test Item Value Reference Range Interpretation Comments Urine RBC (test code = 44306-9) 0-5 0-5 [facility] TempleBacteria detection in urine sediment by light rjtoyebsll0926-18-27 07:45:00* Test Item Value Reference Range Interpretation Comments Urine Bacteria (test code = 25396-7) MODERATE NONE [facility] TempleEpithelial cells detection in urine sediment by light dmdgieruof0233-43-55 07:45:00* Test Item Value Reference Range Interpretation Comments Urine Epithelial Cells (test code = 95080-3) FEW NONE [facility] TempleMucus detection in urine sediment by light xtohkydyrx4993-97-82 07:45:00* Test Item Value Reference Range Interpretation Comments Urine Mucus (test code = 8247-9) FEW RARE [facility]villeerum or plasma sodium measurement (moles/volume)2020-03-04 07:45:00* Test Item Value Reference Range Interpretation Comments Sodium Level (test code = 2951-2) 137 136-145 [facility]villeerum or plasma potassium measurement (moles/volume)2020-03-04 07:45:00* Test Item Value Reference Range Interpretation Comments Potassium Level (test code = 2823-3) 4.3 3.5-5.1 [facility]villeerum or plasma chloride measurement (moles/volume)2020-03-04 07:45:00* Test Item Value Reference Range Interpretation Comments Chloride Level (test code = 2075-0) 101 98-107 [facility]villeerum or plasma carbon dioxide, total measurement (moles/volume)2020-03-04 07:45:00* Test Item Value Reference Range Interpretation Comments Carbon Dioxide Level (test code = 2028-9) 25 22-29 [facility]villeerum or plasma anion jef7590-46-70 07:45:00* Test Item Value Reference Range Interpretation Comments Anion Gap (test code = 40441-9) 15.3 8-16 [facility]villeerum or plasma urea nitrogen measurement (mass/volume)2020-03-04 07:45:00* Test Item Value Reference Range Interpretation Comments Blood Urea Nitrogen (test code = 3094-0) 12 7-26 [facility]villeerum or plasma creatinine measurement (mass/volume)2020-03-04 07:45:00* Test Item Value Reference Range Interpretation Comments Creatinine (test code = 2160-0) 0.93 0.57-1.11 [facility]villeerum or plasma urea nitrogen/creatinine mass qxxch0264-52-83 07:45:00* Test Item Value Reference Range Interpretation Comments BUN/Creatinine Ratio (test code = 3097-3) 13 6-25 [facility] TempleEstimated glomerular filtration rate (GFR) anooapilcgije7605-59-62 07:45:00* Test Item Value Reference Range Interpretation Comments Estimat Glomerular Filtration Rate (test code = 224148877) > 60 >60 Ranges were taken from the National Kidney Disease Education Program and the [facility] literature.Reference ranges:60 or greater: Jpheom02-46 ( for 3 consecutive months): Chronic kidney disease 15 or less: Kidney failureB[facility] & [facility] Center – TempleGlucose okqpeefxaqm1180-96-81 07:45:00* Test Item Value Reference Range Interpretation Comments Glucose Level (test code = XWX0420) 147 74-118 [facility]villeerum or plasma calcium measurement (mass/volume)2020-03-04 07:45:00* Test Item Value Reference Range Interpretation Comments Calcium Level (test code = 82095-6) 9.4 8.4-10.2 [facility]villeerum or plasma total bilirubin measurement (mass/volume)2020-03-04 07:45:00* Test Item Value Reference Range Interpretation Comments Total Bilirubin (test code = 1975-2) 0.9 0.2-1.2 [facility] TempleFluoroscopic procedure less than one hour cvzoylkl3116-91-91 07:45:00* Test Item Value Reference Range Interpretation Comments Aspartate Amino Transf (AST/SGOT) (test code = Aspartate Amino Transf (AST/SGOT)) 24 5-34 [facility]villeerum or plasma alanine aminotransferase measurement (enzymatic activity/volume)2020-03-04 07:45:00* Test Item Value Reference Range Interpretation Comments Alanine Aminotransferase (ALT/SGPT) (test code = 1742-6) 22 0-55 [facility]villeerum or plasma protein measurement (mass/volume)2020-03-04 07:45:00* Test Item Value Reference Range Interpretation Comments Total Protein (test code = 2885-2) 7.6 6.5-8.1 [facility] plasma albumin measurement (mass/volume)2020-03-04 07:45:00* Test Item Value Reference Range Interpretation Comments Albumin (test code = 1751-7) 4.7 3.5-5.0 [facility] TemplePlasma globulin measurement (mass/volume) 2020-03-04 07:45:00* Test Item Value Reference Range Interpretation Comments Globulin (test code = 95468-1) 2.9 2.3-3.5 [facility]ville[facility] or plasma albumin/globulin mass ogauv5657-17-34 07:45:00* Test Item Value Reference Range Interpretation Comments Albumin/Globulin Ratio (test code = 1759-0) 1.6 0.8-2.0 [facility] or plasma alkaline phosphatase measurement (enzymatic activity/volume)2020-03-04 07:45:00* Test Item Value Reference Range Interpretation Comments Alkaline Phosphatase (test code = 6768-6) 87 40-150 [facility]ville[facility] or plasma creatine kinase measurement (enzymatic activity/volume)2020-03-04 07:45:00* Test Item Value Reference Range Interpretation Comments Creatine Kinase (test code = 2157-6) 40 29-168 [facility]ville[facility] or plasma creatine kinase MB measurement (mass/volume)2020-03-04 07:45:00* Test Item Value Reference Range Interpretation Comments Creatine Kinase MB (test code = 52704-1) 0.50 0-5.0 [facility] TempleTroponin I measurement by highly sensitive enzyme nvthddghjqf3046-77-33 07:45:00* Test Item Value Reference Range Interpretation Comments Troponin I (test code = 55172-0) 0.008 0-0.300 [facility] or plasma amylase measurement (enzymatic activity/volume)2020-03-04 07:45:00* Test Item Value Reference Range Interpretation Comments Amylase Level (test code = 1798-8) 59 25-125 [facility]ville[facility] or plasma lipase measurement (enzymatic activity/volume)2020-03-04 07:45:00* Test Item Value Reference Range Interpretation Comments Lipase (test code = 3040-3) 31 8-78 [facility] TempleMAMMOGRAPHY DIGITAL SCR MTLZS6585-47-12 09:26:00 [facility] [address] [address] Patient Name: PRIMITIVO MORGAN MR #: [id number] : 1955 Age/Sex: 64/F Req #: [id number] Adm Physician: Ordered by: KERRI POLANCO MD Report #: [id number] Location: MAMMO Room/Bed: Procedure: 9804-0036 MG/MAMMOGRAPHY DIGITAL SCR BILAT Exam Date: 10/12/19 Exam Time: 08 46 REPORT STATUS: Signed #[id number] - MGSCRBIL #BILATERAL DIGITAL SCREENING MAMMOGRAM WITH CAD: 0 CLINICAL: Routine screening. No prior exams were available for compar lilli. Current study contains 4 films. There are scattered fibroglandular el ements in both breasts. Current study was also evaluated with a Computer Aid ed Detection (CAD) system. Benign appearing calcifications are noted bilater ally. No significant masses, calcifications, or other findings are seen in e ither breast. IMPRESSION: BENIGN There is no mammographic evidence of m alignancy. A 1 year screening mammogram is recommended. The patient will be notified by letter of the results. MADI ARGUETA M.D. ct/p enrad:10/26/2019 10:47:41 Restaurant Line Server: Ira NICK(Ananya)(M), [facility] letter sent: Normal Exam Mammogram BI-RA DS: 2 Benign Dictated By: MADI ARGUETA MD 46 Transcribed By: JOÃO on 10/26/191046 COPY TO: KERRI POLANCO MD CT ABDOMEN/PELVIS [id number] 10:16:00 [facility] [address] [address] Patient Name: PRIMITIVO MORGAN MR #: [id number] : 1955 Age/Sex: 64/F Req #: [id number] Adm Physician: Ordered by: YAMEL ZENDEJAS MD Report #: [id number] Location: CT Room/Bed: Procedure: [id number] CT/C T ABDOMEN/PELVIS W Exam Date: 08/10/19 Exam Time: 50 REPORT STATUS: Signed CT of t he abdomen and pelvis History: Left upper quadrant abdominal pain Comp arison: None available. Technique: Multidetector CT scanning of the abdomen and pelv is was performed from the level of the lung bases to the inferior pubic ramus, with intravenous administration of non-ionic contrast. DOSE REDUCTION: T he examination was performed according to departmental dose-optimization progr am which includes automated exposure control, adjustment of the mA and/or kV a ccording to patient size and/or use of iterative reconstruction technique. Discussio n: The lung bases are clear. No focal hepatic lesions are identified. Th e gallbladder is surgically absent. No intrahepatic or extra hepatic bladder d ilatation. Spleen is within normal limits. The bilateral adrenal gland s are unremarkable. The pancreas is normal in attenuation. There is no panc reatic ductal dilatation or peripancreatic inflammatory stranding. The ki dneys are normal in size and enhance symmetrically. No hydroureteronephrosis i s present. No renal calculi are identified. The stomach, small, and large b owel are nondistended. There is no evidence of obstruction. No bowel wall thic kening is appreciated. The appendix is absent. There is no free intraperito kash air or ascites. The abdominal aorta is of normal course and caliber. The uterus and bilateral adnexa are within normal limits. The urinary b ladder is normal. There are no acute osseous abnormalities. IMPRESSION : 1. No CT evidence of acute abdominal or pelvic pathology. 2. Status pos t cholecystectomy and appendectomy. Signed by: Anthony Polanco MD on 2019 10:23 AM Dictated By: ANTHONY POLANCO MD 1023 Transcribed By: GAVIN on 08/10/19 1023 COPY TO: YAMEL ZENDEJAS MD CT ABDOMEN/PELVIS [id number] 21:53:[address] [address] Patient Name: PRIMITIVO MORGAN MR #: [id number] : [birth year] Age/Sex: 63/F Req #: [id number] Adm Physician: Ordered by: MADELEINE BARRIENTOS MD Report #: [id number] Location: ER Room/Bed: Procedure: [id number]/CT ABDOMEN/PELVIS W Exam Date: 09/06/18 Exam Time: 2131 REPORT STATUS: Signed EXAM: CT Abdomen and Pelvis WITH contrast INDICATION: left side abdominal p ain COMPARISON: CT abdomen and pelvis 03/12/2018 TECHNIQUE: Abdomen and pelvi s were scanned utilizing a multidetector helical scanner from the lung base to the pubic symphysis after administration of IV contrast. Coronal and sagittal reformations were obtained. Routine protocol was performed. Scan was performe d when during portal venous phase. IV CONTRAST: 100 mL of Isovue-370 ORAL CONTRAST: Water COMPLICATIONS: None RADIATION DOSE: Total DLP: 247 mGy*cm Estimated effective dose: (DLP x 0.015 x size factor) mSv Dose modulation, iterative reconstruction, and/or jeff ght based adjustment of the mA/kV was utilized to reduce the radiation dose to as low as reasonably achievable. FINDINGS: LINES and TUBES: None. LOWER THORAX: Unremarkable HEPATOBILIARY: No focal hepatic lesio ns. No biliary ductal dilation. GALLBLADDER: Absent SPLEEN: No spleno megaly. PANCREAS: No focal masses or ductal dilatation. ADRENALS: N o adrenal nodules KIDNEYS/URETERS: Kidneys enhance symmetrically. No h ydronephrosis. No cystic or solid mass lesions. No stones. GI TRACT: No abnormal distention, wall thickening, or evidence of bowel obstruction. Appendectomy. PELVIC ORGANS/BLADDER: Unremarkable. LYMPH NODES: No lym phadenopathy. VESSELS: There is mild atherosclerotic disease in the aorta a nd major arterial branches. PERITONEUM / RETROPERITONEUM: No free air or fluid. BONES: There are mild degenerative changes in the lumbar spine. SOFT TISSUES: Stable right gluteal fat necrosis and bilateral gluteal calcifi cations. IMPRESSION: No acute abnormalities. Signed by: DR. Leif Noland MD on 09/06/2018 9:58 PM Dictated By: LEIF NOLAND MD 57 Transcribed By: Jennifer MCNAMARA on 09/06/182157 COPY TO: MADELEINE BARRIENTOS MD Sodium Ktedl2841-06-55 21:10:00* Test Item Value Reference Range Interpretation Comments Sodium Level (test code = 2951-2) 138 136-145 [facility] TemplePotassium Lolih2481-23-55 21:10:00* Test Item Value Reference Range Interpretation Comments Potassium Level (test code = 2823-3) 4.3 3.5-5.1 [facility] TempleChloride Mylir5091-47-05 21:10:00* Test Item Value Reference Range Interpretation Comments Chloride Level (test code = 2075-0) 107 98-107 [facility] TempleCarbon Dioxide Rpwtl9788-06-85 21:10:00* Test Item Value Reference Range Interpretation Comments Carbon Dioxide Level (test code = 2028-9) 24 22-29 [facility] TempleAnion Eos4661-82-56 21:10:00* Test Item Value Reference Range Interpretation Comments Anion Gap (test code = 79759-3) 11.3 8-16 [facility] TempleBlood Urea Stgazaxx0481-29-03 21:10:00* Test Item Value Reference Range Interpretation Comments Blood Urea Nitrogen (test code = 3094-0) 11 7-26 [facility] TempleCreatinine2019-03-30 21:10:00* Test Item Value Reference Range Interpretation Comments Creatinine (test code = 2160-0) 0.89 0.57-1.11 [facility] TempleBUN/Creatinine Semsf6160-78-58 21:10:00* Test Item Value Reference Range Interpretation Comments BUN/Creatinine Ratio (test code = 3097-3) 12 6- [facility] TempleEstimat Glomerular Filtration Rate 2018-09-06 21:10:00* Test Item Value Reference Range Interpretation Comments Estimat Glomerular Filtration Rate (test code = 246255920) > 60 >60 Ranges were taken from the National Kidney Disease Education Program and the [facility] literature.Reference ranges:60 or greater: Zocvzf32-96 ( for 3 consecutive months): Chronic kidney disease 15 or less: Kidney failureBaylor Scott & White Medical Center – TempleGlucose Inezr5906-84-21 21:10:00* Test Item Value Reference Range Interpretation Comments Glucose Level (test code = MZJ0423) 112 74-118 [facility] TempleCalcium Knkyt9607-51-27 21:10:00* Test Item Value Reference Range Interpretation Comments Calcium Level (test code = 52821-0) 9.2 8.4-10.2 [facility] TempleTotal Sgoasqxxd7728-44-33 21:10:00* Test Item Value Reference Range Interpretation Comments Total Bilirubin (test code = 1975-2) 0.5 0.2-1.2 [facility] TempleAspartate Amino Transf (AST/SGOT) 2018-09-06 21:10:00* Test Item Value Reference Range Interpretation Comments Aspartate Amino Transf (AST/SGOT) (test code = Aspartate Amino Transf (AST/SGOT)) 20 5-34 [facility] TempleAlanine Aminotransferase (ALT/SGPT) 2018-09-06 21:10:00* Test Item Value Reference Range Interpretation Comments Alanine Aminotransferase (ALT/SGPT) (test code = 1742-6) 18 0-55 [facility] TempleTotal Kdqvjut3967-02-22 21:10:00* Test Item Value Reference Range Interpretation Comments Total Protein (test code = 2885-2) 7.2 6.5-8.1 [facility] TempleAlbumin2019-03-30 21:10:00* Test Item Value Reference Range Interpretation Comments Albumin (test code = 1751-7) 4.0 3.5-5.0 [facility] TempleGlobulin2019-03-30 21:10:00* Test Item Value Reference Range Interpretation Comments Globulin (test code = 59700-2) 3.2 2.3-3.5 [facility] TempleAlbumin/Globulin Eyyhh6316-45-55 21:10:00 * Test Item Value Reference Range Interpretation Comments Albumin/Globulin Ratio (test code = 1759-0) 1.3 0.8-2.0 [facility] TempleAlkaline Cehpvlalefn8697-52-09 21:10:00* Test Item Value Reference Range Interpretation Comments Alkaline Phosphatase (test code = 6768-6) 84 40-150 [facility] TempleCreatine Xqdcrq9619-99-22 21:10:00* Test Item Value Reference Range Interpretation Comments Creatine Kinase (test code = 2157-6) 53 29-168 [facility] TempleCreatine Kinase YX4794-54-74 21:10:00* Test Item Value Reference Range Interpretation Comments Creatine Kinase MB (test code = 95654-5) 0.30 0-5.0 [facility] TempleTroponin R8935-65-17 21:10:00* Test Item Value Reference Range Interpretation Comments Troponin I (test code = AXH7795) 0.002 0-0.300 [facility] TempleAmylase Ubtnj1618-85-26 21:10:00* Test Item Value Reference Range Interpretation Comments Amylase Level (test code = 1798-8) 69 25-125 [facility] TempleLipase2019-03-30 21:10:00* Test Item Value Reference Range Interpretation Comments Lipase (test code = 3040-3) 44 8-78 [facility] TempleUrine GRP8409-49-26 20:51:00* Test Item Value Reference Range Interpretation Comments Urine WBC (test code = 5821-4) 0-5 0-5 [facility] TempleUrine UKV9554-83-51 20:51:00* Test Item Value Reference Range Interpretation Comments Urine RBC (test code = 30873-5) 11-20 0-5 H [facility] TempleUrine Bxubgjrn1524-60-67 20:51:00* Test Item Value Reference Range Interpretation Comments Urine Bacteria (test code = 43158-5) MODERATE NONE H [facility] TempleUrine Epithelial Vwypn2260-76-00 20:51:00 * Test Item Value Reference Range Interpretation Comments Urine Epithelial Cells (test code = 71481-2) MODERATE NONE [facility] TempleUrine Igocx9008-45-44 20:51:00* Test Item Value Reference Range Interpretation Comments Urine Yeast (test code = 38327-3) RARE NONE H [facility] TempleWhite Blood Imolg3144-95-00 20:45:00* Test Item Value Reference Range Interpretation Comments White Blood Count (test code = 6690-2) 6.03 4.8-10.8 [facility] TempleRed Blood Twxrf1933-64-10 20:45:00* Test Item Value Reference Range Interpretation Comments Red Blood Count (test code = 789-8) 4.25 3.6-5.1 [facility] TempleHemoglobin2019-03-30 20:45:00* Test Item Value Reference Range Interpretation Comments Hemoglobin (test code = 38476-6) 14.3 12.0-16.0 [facility] TempleHematocrit2019-03-30 20:45:00* Test Item Value Reference Range Interpretation Comments Hematocrit (test code = 4544-3) 42.6 34.2-44.1 [facility] TempleMean Corpuscular Xmhbgt2815-72-82 20:45:00* Test Item Value Reference Range Interpretation Comments Mean Corpuscular Volume (test code = 787-2) 100.2 81-99 H [facility] TempleMean Corpuscular Nefizdzzki0867-92-12 20:45:00* Test Item Value Reference Range Interpretation Comments Mean Corpuscular Hemoglobin (test code = 785-6) 33.6 28-32 H [facility] TempleMean Corpuscular Hemoglobin Concent 2018-09-06 20:45:00* Test Item Value Reference Range Interpretation Comments Mean Corpuscular Hemoglobin Concent (test code = 786-4) 33.6 31-35 [facility] TempleRed Cell Distribution Cjxqk2731-34-72 20:45:00* Test Item Value Reference Range Interpretation Comments Red Cell Distribution Width (test code = 60695-9) 12.5 11.7 -14.4 [facility] TemplePlatelet Lwvpj1079-35-13 20:45:00* Test Item Value Reference Range Interpretation Comments Platelet Count (test code = 777-3) 183 140-360 [facility] TempleNeutrophils (%) (Auto)2018-09-06 20:45:00 * Test Item Value Reference Range Interpretation Comments Neutrophils (%) (Auto) (test code = 29107-6) 55.1 38.7-80.0 [facility] TempleLymphocytes (%) (Auto)2018-09-06 20:45:00 * Test Item Value Reference Range Interpretation Comments Lymphocytes (%) (Auto) (test code = 736-9) 28.7 18.0-39.1 [facility] TempleMonocytes (%) (Auto)2018-09-06 20:45:00* Test Item Value Reference Range Interpretation Comments Monocytes (%) (Auto) (test code = 5905-5) 11.4 4.4-11.3 H [facility] TempleEosinophils (%) (Auto)2018-09-06 20:45:00 * Test Item Value Reference Range Interpretation Comments Eosinophils (%) (Auto) (test code = 713-8) 3.6 0.0-6.0 [facility] TempleBasophils (%) (Auto)2018-09-06 20:45:00* Test Item Value Reference Range Interpretation Comments Basophils (%) (Auto) (test code = 706-2) 0.7 0.0-1.0 [facility] TempleIM GRANULOCYTES %2018-09-06 20:45:00* Test Item Value Reference Range Interpretation Comments IM GRANULOCYTES % (test code = IM GRANULOCYTES %) 0.5 0.0- 1.0 [facility] TempleNeutrophils # (Auto)2018-09-06 20:45:00* Test Item Value Reference Range Interpretation Comments Neutrophils # (Auto) (test code = 751-8) 3.3 2.1-6.9 [facility] TempleLymphocytes # (Auto)2018-09-06 20:45:00* Test Item Value Reference Range Interpretation Comments Lymphocytes # (Auto) (test code = 62183-7) 1.7 1.0-3.2 [facility] TempleMonocytes # (Auto)2018-09-06 20:45:00* Test Item Value Reference Range Interpretation Comments Monocytes # (Auto) (test code = 742-7) 0.7 0.2-0.8 [facility] TempleEosinophils # (Auto)2018-09-06 20:45:00* Test Item Value Reference Range Interpretation Comments Eosinophils # (Auto) (test code = 711-2) 0.2 0.0-0.4 [facility] TempleBasophils # (Auto)2018-09-06 20:45:00* Test Item Value Reference Range Interpretation Comments Basophils # (Auto) (test code = 704-7) 0.0 0.0-0.1 [facility] TempleAbsolute Immature Granulocyte (auto 2018-09-06 20:45:00* Test Item Value Reference Range Interpretation Comments Absolute Immature Granulocyte (auto (bailey t code = Absolute Immature Granulocyte (auto) 0.03 0-0.1 [facility] TempleUrine Rbfwu4245-18-59 20:43:00* Test Item Value Reference Range Interpretation Comments Urine Color (test code = 5778-6) YELLOW YELLOW [facility] TempleUrine Wkjrlzy7180-78-59 20:43:00* Test Item Value Reference Range Interpretation Comments Urine Clarity (test code = 26185-8) HAZY CLEAR [facility] TempleUrine Specific Gxedgdm7854-62-78 20:43:00 * Test Item Value Reference Range Interpretation Comments Urine Specific [place] (test code = 5811-5) 1.020 1.010-1.02 5 [facility] TempleUrine nO3235-22-01 20:43:00* Test Item Value Reference Range Interpretation Comments Urine pH (test code = 36482-9) 6 5-7 [facility] Leukocyte Dmedupms2523-52-68 20:43:00* Test Item Value Reference Range Interpretation Comments Urine Leukocyte Esterase (test code = 5799-2) NEGATIVE NEGATIVE [facility] Bioivhp1631-73-48 20:43:00* Test Item Value Reference Range Interpretation Comments Urine Nitrite (test code = 80000-0) NEGATIVE NEGATIVE [facility] TempleUrine Jwivtnt7821-06-55 20:43:00* Test Item Value Reference Range Interpretation Comments Urine Protein (test code = 5804-0) NEGATIVE NEGATIVE [facility] TempleUrine Glucose (UA)2018-09-06 20:43:00* Test Item Value Reference Range Interpretation Comments Urine Glucose (UA) (test code = 2349-9) NEGATIVE NEGATIVE [facility] TempleUrine Udpwrfz8435-22-37 20:43:00* Test Item Value Reference Range Interpretation Comments Urine Ketones (test code = 12383-2) TRACE NEGATIVE H [facility] TempleUrine Gfneweakfpss9902-79-72 20:43:00* Test Item Value Reference Range Interpretation Comments Urine Urobilinogen (test code = 24727-7) 0.2 0.2-1 [facility] TempleUrine Prpqfooga9506-84-73 20:43:00* Test Item Value Reference Range Interpretation Comments Urine Bilirubin (test code = 1978-6) NEGATIVE NEGATIVE [facility] Fdjyu1274-28-55 20:43:00* Test Item Value Reference Range Interpretation Comments Urine Blood (test code = 14498-1) 3+ NEGATIVE H [facility] CenterUS GPITNSVXWCP3120-34-66 08:58:00 [facility] [address] [address] Patient Name: PRIMITIVO MORGAN MR #: [id number] : 1955 Age/Sex: 63/F Req #: [id number] Adm Physician: Ordered by: PIERCE CLEMENTE MD Report #: [id number] Location: Room/Bed: Procedure: 0208-000 1 US/US GALLBLADDER Exam Date: 07/18/18 Exam Time: 0 816 REPORT STATUS: Signed EXAM: Right upper quadrant abdominal ultrasound INDICATION: Right upper quadrant pain COMPARISON: CT abdomen/pelvis 03/12/2018. TECHNIQUE: Transverse and longitudinal images of the right upper quadrant abdomen were obtained FINDINGS: Liver: Size: Measures 13.5 cm in the right midclavicular carolina e, normal Appearance: Normal echogenicity, smooth contour Mass: No focal mas ses Gallbladder: There is mild gallbladder sludge. No distension, perichole cystic fluid, wall thickening, stone, or reported sonographic Ji's sign. Gallbladder wall measures 0.2 cm. Bile Ducts: Intrahepatic Ducts: No di latation Extrahepatic Ducts: Common bile duct measures 0.3 cm, no dilatation Pancreas: Partially visualized pancreas is unremarkable. Kidney: The right kidney measures 10.0 cm without evidence of hydronephrosis or stone. Vessels: Aorta: Visualized portions are normal Inferior Vena Cava: Visua lized portions are normal Main Portal Vein: Measures 0.7 cm, normal size with hepatopetal flow. Free Fluid: No evidence of ascites. IMPRESSION: Mild gallbladder sludge without sonographic evidence of cholelithiasis or chol ecystitis. Signed by: Dr. Corrine Rao MD on 07/18/2018 9:02 AM Dictate d By: CORRINE RAO MD 1 T ranscribed By: GAVIN on 07/18/18901 COPY TO: PIERCE CLEMENTE MD Iron Brqdi4103-00-92 09:29:00* Test Item Value Reference Range Interpretation Comments Iron Level (test code = 2498-4) 35 50-170 L [facility] Iron Binding Dlxnepwj9425-23-42 09:29:00* Test Item Value Reference Range Interpretation Comments Total Iron Binding Capacity (test code = 2500-7) 216 261-4 78 L [facility] TemplePercent Iron Kudsqwnvah9314-62-18 09:29:00* Test Item Value Reference Range Interpretation Comments Percent Iron Saturation (test code = 2502-3) 16 15-50 [facility] TempleTransferrin2018-10-05 09:29:00* Test Item Value Reference Range Interpretation Comments Transferrin (test code = 3034-6) 154 180-382 L [facility] TempleIron Jwmcx1732-41-27 09:29:00* Test Item Value Reference Range Interpretation Comments Iron Level (test code = 2498-4) 35 50-170 L [facility] TempleTotal Iron Binding Sdcvwpfq7362-66-27 09:29:00* Test Item Value Reference Range Interpretation Comments Total Iron Binding Capacity (test code = 2500-7) 216 261-4 78 L [facility] TemplePercent Iron Ibktvzdbzt8839-21-96 09:29:00* Test Item Value Reference Range Interpretation Comments Percent Iron Saturation (test code = 2502-3) 16 15-50 [facility] TempleTransferrin2018-10-05 09:29:00* Test Item Value Reference Range Interpretation Comments Transferrin (test code = 3034-6) 154 180-382 L [facility]ville[facility] Iivdc7949-08-93 06:07:00* Test Item Value Reference Range Interpretation Comments Sodium Level (test code = 2951-2) 140 136-145 [facility] TemplePotassium Hiwkt8982-34-59 06:07:00* Test Item Value Reference Range Interpretation Comments Potassium Level (test code = 2823-3) 4.2 3.5-5.1 [facility] TempleChloride Duyai5768-92-97 06:07:00* Test Item Value Reference Range Interpretation Comments Chloride Level (test code = 2075-0) 113 98-107 H [facility] TempleCarbon Dioxide Hxhqk5858-58-82 06:07:00* Test Item Value Reference Range Interpretation Comments Carbon Dioxide Level (test code = 2028-9) 19 22-29 L [facility] TempleAnion Fcv6416-27-37 06:07:00* Test Item Value Reference Range Interpretation Comments Anion Gap (test code = 15289-9) 12.2 8-16 [facility] TempleBlood Urea Uarfdvuw5078-44-03 06:07:00* Test Item Value Reference Range Interpretation Comments Blood Urea Nitrogen (test code = 3094-0) 9 7-26 [facility] TempleCreatinine2018-10-05 06:07:00* Test Item Value Reference Range Interpretation Comments Creatinine (test code = 2160-0) 0.75 0.57-1.11 [facility] TempleBUN/Creatinine Xnvwy7324-88-22 06:07:00* Test Item Value Reference Range Interpretation Comments BUN/Creatinine Ratio (test code = 3097-3) 12 6-25 [facility] TempleEstimat Glomerular Filtration Rate 2018-03-14 06:07:00* Test Item Value Reference Range Interpretation Comments Estimat Glomerular Filtration Rate (test code = 514879970) 60- >60 Ranges were taken from the National Kidney Disease Education Program and the [facility] literature.Reference ranges:60 or greater: Ybcgnp01-56 ( for 3 consecutive months): Chronic kidney disease 15 or less: Kidney failureB[facility] Scott & [facility] – TempleGlucose Rtykx5506-40-23 06:07:00* Test Item Value Reference Range Interpretation Comments Glucose Level (test code = LZT9889) 110 74-118 [facility] TempleCalcium Ikjan2844-48-27 06:07:00* Test Item Value Reference Range Interpretation Comments Calcium Level (test code = 90742-9) 7.8 8.4-10.2 L [facility] TempleWhite Blood Oruwa8126-47-97 06:03:00* Test Item Value Reference Range Interpretation Comments White Blood Count (test code = 6690-2) 7.15 4.8-10.8 [facility] TempleRed Blood Foiee6709-17-72 06:03:00* Test Item Value Reference Range Interpretation Comments Red Blood Count (test code = 789-8) 2.70 3.6-5.1 L [facility] TempleHemoglobin2018-10-05 06:03:00* Test Item Value Reference Range Interpretation Comments Hemoglobin (test code = 56379-4) 9.5 12.0-16.0 L [facility] TempleHematocrit2018-10-05 06:03:00* Test Item Value Reference Range Interpretation Comments Hematocrit (test code = 4544-3) 27.7 34.2-44.1 L [facility] TempleMean Corpuscular Zqwjxb2087-93-40 06:03:00* Test Item Value Reference Range Interpretation Comments Mean Corpuscular Volume (test code = 787-2) 102.6 81-99 H [facility] TempleMean Corpuscular Fiyotrcheo9042-20-39 06:03:00* Test Item Value Reference Range Interpretation Comments Mean Corpuscular Hemoglobin (test code = 785-6) 35.2 28-32 H [facility] TempleMean Corpuscular Hemoglobin Concent 2018-03-14 06:03:00* Test Item Value Reference Range Interpretation Comments Mean Corpuscular Hemoglobin Concent (test code = 786-4) 34.3 31-35 [facility] TempleRed Cell Distribution Mxljm1543-52-89 06:03:00* Test Item Value Reference Range Interpretation Comments Red Cell Distribution Width (test code = 95290-2) 12.6 11.7 -14.4 [facility] TemplePlatelet Adjtq9643-00-08 06:03:00* Test Item Value Reference Range Interpretation Comments Platelet Count (test code = 777-3) 131 140-360 L [facility] TempleNeutrophils (%) (Auto)2018-03-14 06:03:00 * Test Item Value Reference Range Interpretation Comments Neutrophils (%) (Auto) (test code = 33634-0) 83.0 38.7-80.0 H [facility] TempleLymphocytes (%) (Auto)2018-03-14 06:03:00 * Test Item Value Reference Range Interpretation Comments Lymphocytes (%) (Auto) (test code = 736-9) 9.2 18.0-39.1 L [facility] TempleMonocytes (%) (Auto)2018-03-14 06:03:00* Test Item Value Reference Range Interpretation Comments Monocytes (%) (Auto) (test code = 5905-5) 7.1 4.4-11.3 [facility] TempleEosinophils (%) (Auto)2018-03-14 06:03:00 * Test Item Value Reference Range Interpretation Comments Eosinophils (%) (Auto) (test code = 713-8) 0.0 0.0-6.0 [facility] TempleBasophils (%) (Auto)2018-03-14 06:03:00* Test Item Value Reference Range Interpretation Comments Basophils (%) (Auto) (test code = 706-2) 0.0 0.0-1.0 [facility] TempleIM GRANULOCYTES %2018-03-14 06:03:00* Test Item Value Reference Range Interpretation Comments IM GRANULOCYTES % (test code = IM GRANULOCYTES %) 0.7 0.0- 1.0 [facility] TempleNeutrophils # (Auto)2018-03-14 06:03:00* Test Item Value Reference Range Interpretation Comments Neutrophils # (Auto) (test code = 751-8) 5.9 2.1-6.9 [facility] TempleLymphocytes # (Auto)2018-03-14 06:03:00* Test Item Value Reference Range Interpretation Comments Lymphocytes # (Auto) (test code = 38109-7) 0.7 1.0-3.2 L [facility] TempleMonocytes # (Auto)2018-03-14 06:03:00* Test Item Value Reference Range Interpretation Comments Monocytes # (Auto) (test code = 742-7) 0.5 0.2-0.8 [facility] TempleEosinophils # (Auto)2018-03-14 06:03:00* Test Item Value Reference Range Interpretation Comments Eosinophils # (Auto) (test code = 711-2) 0.0 0.0-0.4 [facility] TempleBasophils # (Auto)2018-03-14 06:03:00* Test Item Value Reference Range Interpretation Comments Basophils # (Auto) (test code = 704-7) 0.0 0.0-0.1 [facility] TempleAbsolute Immature Granulocyte (auto 2018-03-14 06:03:00* Test Item Value Reference Range Interpretation Comments Absolute Immature Granulocyte (auto (bailey t code = Absolute Immature Granulocyte (auto) 0.05 0-0.1 [facility] TempleTotal Vktebjxgj1953-52-30 07:18:00* Test Item Value Reference Range Interpretation Comments Total Bilirubin (test code = 1975-2) 1.3 0.2-1.2 H [facility] TempleAspartate Amino Transf (AST/SGOT) 2018-03-13 07:18:00* Test Item Value Reference Range Interpretation Comments Aspartate Amino Transf (AST/SGOT) (test code = Aspartate Amino Transf (AST/SGOT)) 19 5-34 [facility] TempleAlanine Aminotransferase (ALT/SGPT) 2018-03-13 07:18:00* Test Item Value Reference Range Interpretation Comments Alanine Aminotransferase (ALT/SGPT) (test code = 1742-6) 20 0-55 [facility] TempleTotal Hujvesy7189-21-72 07:18:00* Test Item Value Reference Range Interpretation Comments Total Protein (test code = 2885-2) 5.7 6.5-8.1 L [facility] TempleAlbumin2018-10-04 07:18:00* Test Item Value Reference Range Interpretation Comments Albumin (test code = 1751-7) 3.4 3.5-5.0 L [facility] TempleGlobulin2018-10-04 07:18:00* Test Item Value Reference Range Interpretation Comments Globulin (test code = 54072-5) 2.3 2.3-3.5 [facility] TempleAlbumin/Globulin Jwzvj8282-35-89 07:18:00 * Test Item Value Reference Range Interpretation Comments Albumin/Globulin Ratio (test code = 1759-0) 1.5 0.8-2.0 [facility] TempleAlkaline Wpyqpegnhxn1901-22-36 07:18:00* Test Item Value Reference Range Interpretation Comments Alkaline Phosphatase (test code = 6768-6) 62 40-150 [facility] TempleCT ABDOMEN/PELVIS X8709-37-08 23:35:00 [facility] [address] [place] [address] Patient Name: PRIMITIVO MORGAN MR #: [id number] : 1955 Age/Sex: 62/F Req #: [id number] Adm Physician: Ordered by: MADELEINE BARRIENTOS MD Report #: [id number] Location: [facility]/Bed: Procedure: [id number] CT/CT ABDOMEN/PELVIS W Exam Date: Exam Time: REPORT STATUS: Signed EXAM: CT Abdomen and Pelvis WITH contrast INDICATION: Abdominal pain, rig ht lower quadrant. COMPARISON: None. TECHNIQUE: Abdomen and pelvis were scan taj utilizing a multidetector helical scanner from the lung base to the pubic symphysis after administration of IV contrast. Coronal and sagittal reformatio ns were obtained. Routine protocol was performed. Scan was performed when duri ng portal venous phase. IV CONTRAST: 100 mL of Isovue-370 ORAL CONTRAST: Gastrografin RADIATION DOSE: Total DLP: 233.4 0 mGy*cm Estimated effective dose: (DLP x 0.015 x size factor) mS v COMPLICATIONS: None FINDINGS: LINES and TUBES: None. LOWER THORAX: Unremarkable HEPATOBILIARY: No focal hepatic lesion s. No biliary ductal dilation. GALLBLADDER: No radio-opaque stones or slud ge. No wall thickening. SPLEEN: No splenomegaly. PANCREAS: No focal masses or ductal dilatation. ADRENALS: No adrenal nodules KIDNEY S/URETERS: Kidneys enhance symmetrically. No hydronephrosis. No cystic or cady id mass lesions. No stones. GI TRACT: No abnormal distention, wall thicken ing, or evidence of bowel obstruction. The appendix is diffusely distend ed with fluid with evidence of a large appendicolith at the origin of the appe ndix. The appendix measures 1.3 cm in maximum dimension. PELVIC ORGANS/BL ADDER: Unremarkable. LYMPH NODES: No lymphadenopathy. VESSELS: Unremar kable. PERITONEUM / RETROPERITONEUM: No free air or fluid. BONES: Unre markable. SOFT TISSUES: Right gluteal area of fat necrosis and bilateral so ft tissue calcifications . IMPRESSION: 1. Findings in the right lower quadrant are consistent with uncomplicated acute appendicitis. Signed by: Dr. Nic Pastrana M.D. on 03/12/2018 11:37 PM Dictated By: SEBASTIAN MAHER MD 36 COPY TO: MADELEINE BARRIENTOS MD Urine [id number] 22:31:00* Test Item Value Reference Range Interpretation Comments Urine WBC (test code = 5821-4) 6-10 0-5 H [facility] TempleUrine EWO5232-63-29 22:31:00* Test Item Value Reference Range Interpretation Comments Urine RBC (test code = 32815-8) 11-20 0-5 H [facility] TempleUrine Svrvuovl6486-36-41 22:31:00* Test Item Value Reference Range Interpretation Comments Urine Bacteria (test code = 22737-1) RARE NONE [facility] TempleUrine Epithelial Xmiou9727-04-29 22:31:00 * Test Item Value Reference Range Interpretation Comments Urine Epithelial Cells (test code = 14523-6) FEW NONE [facility] TempleUrine Bamkm4281-67-90 22:31:00* Test Item Value Reference Range Interpretation Comments Urine Mucus (test code = 8247-9) FEW RARE H [facility] TempleUrine Tejvj1626-54-57 22:31:00* Test Item Value Reference Range Interpretation Comments Urine Mucus (test code = 8247-9) FEW RARE H [facility] TempleUrine Gkitq9224-69-84 22:23:00* Test Item Value Reference Range Interpretation Comments Urine Color (test code = 5778-6) YELLOW YELLOW [facility] TempleUrine Pqxkrox2638-41-17 22:23:00* Test Item Value Reference Range Interpretation Comments Urine Clarity (test code = 38350-7) CLEAR CLEAR [facility] TempleUrine Specific Eazfiyk0400-41-69 22:23:00 * Test Item Value Reference Range Interpretation Comments Urine Specific [place] (test code = 5811-5) 1.010 1.010-1.02 5 [facility] TempleUrine [id number] 22:23:00* Test Item Value Reference Range Interpretation Comments Urine pH (test code = 11440-7) 7 5-7 [facility] TempleUrine Leukocyte Hwyovltf4095-05-22 22:23:00* Test Item Value Reference Range Interpretation Comments Urine Leukocyte Esterase (test code = 5799-2) NEGATIVE NEGATIVE [facility] TempleUrine Yortnvx8699-69-08 22:23:00* Test Item Value Reference Range Interpretation Comments Urine Nitrite (test code = 69492-8) NEGATIVE NEGATIVE [facility] TempleUrine Fsustgs9516-58-63 22:23:00* Test Item Value Reference Range Interpretation Comments Urine Protein (test code = 5804-0) 1+ NEGATIVE H [facility] TempleUrine Glucose (UA)2018-03-12 22:23:00* Test Item Value Reference Range Interpretation Comments Urine Glucose (UA) (test code = 2349-9) NEGATIVE NEGATIVE [facility] TempleUrine Ybimize9712-60-80 22:23:00* Test Item Value Reference Range Interpretation Comments Urine Ketones (test code = 55686-1) 2+ NEGATIVE H [facility] TempleUrine Uhyflnwdafbc9306-11-46 22:23:00* Test Item Value Reference Range Interpretation Comments Urine Urobilinogen (test code = 71155-7) 0.2 0.2-1 [facility] TempleUrine Gzsvrmhpk8351-58-84 22:23:00* Test Item Value Reference Range Interpretation Comments Urine Bilirubin (test code = 1978-6) NEGATIVE NEGATIVE [facility] TempleUrine Fsnbs9139-62-57 22:23:00* Test Item Value Reference Range Interpretation Comments Urine Blood (test code = 69710-6) 2+ NEGATIVE H [facility] TempleAmylase Wrgru1126-17-77 22:13:00* Test Item Value Reference Range Interpretation Comments Amylase Level (test code = 1798-8) 49 25-125 [facility] TempleLipase2018-10-03 22:13:00* Test Item Value Reference Range Interpretation Comments Lipase (test code = 3040-3) 27 8-78 [facility] TempleBONE DXA DUAL ENERGY [facility] [address] [place] [address] Patient Name: PRIMITIVO MORGAN MR #: [id number] : 1955 Age/Sex: 62/F Req #: [id number] Adm Physician: Ordered by: KERRI POLANCO MD Report #: [id number] Location: [facility] Room/Bed: Procedure: [id number] DX/BONE DXA DUAL ENERGY Ex am Date: Exam Time: REPORT STATUS: Signed PROCEDURE: BONE DXA DUAL ENERGY FINDINGS: Proximal femur bone branch examiner al density (BMD) (g/cm2): 0.780 Femur T-score (standard deviation relative t o young adult mean BMD): -1.4 Femur Z-score (standard deviation relative to age-matched control group): -2.6 10 year fracture risk: Major os teoporotic fracture: 4.9% Hip fracture: 0.5% Lumbar bone mineral den sity (BMD) (g/cm2): 0.781 Lumbar T-score (standard deviation relative to you ng adult mean BMD): -2.4 Lumbar Z-score (standard deviation relative to a ge-matched control group): - 0.8 Change since prior exam (%): Fe mur: 0.7% Spine: 1.8% Change since oldest prior exam (%): Femur: -2. 6% Spine: 2.6% IMPRESSION: World Health Organization Classifica tion: Osteopenia. Increase risk of fracture. *The Z-score is provided for informational purposes. The T-score is preferable for clinical decisions . When comparing exams, a change of >4% [...] M.D. Dictated by: Maribell Freeman M.D. on 2017 at 12:17 Electronically approved by: Maribell Freeman M.D. on 08/14/2017 at 12:17 Dictated By: ANN MARIE FREEMAN MD, MD Electron ically Signed By: ANN MARIE FREEMAN MD, MD on 08/14/17 1217 Transcribed By: STEPHANIE costello 08/14/17 1217 COPY TO: KERRI POLANCO MD MAMMOGRAPHY DIGITAL SCR BILAT [place] [id number] [place] [address] Patient Name: PRIMITIVO MORGAN MR #: [id number] : 1955 Age/Sex: 62/F Req #: [id number] Adm Physician: Ordered by: KERRI POLANCO MD Report #: [id number] Location: MAMMO Room/Bed: Procedure: [id number] MG/MAMMOGRAPHY DIGITAL SCR BILAT Exam Date: 08/14/17 Exam Time: 0842 REPO RT STATUS: Signed #[id number] - MGSCRBIL #BILATERAL DIGITAL SCREENING MAMMOGRAM WITH CAD: 08/14/2017 CLINICAL: Routine screening. Comparison i s made to exams dated: 05/09/2016 mammogram and 05/21/2015 mammogram - [facility]. Current study contains 4 films. There are sc attered fibroglandular elements in both breasts. Current study was also eval uated with a Computer Aided Detection (CAD) system. There are benign calcifi cations in both breasts. No significant masses, calcifications, or other fin dings are seen in either breast. There has been no significant interval velez ge. IMPRESSION: BENIGN There is no mammographic evidence of malignancy. A 1 year screening mammogram is recommended. The patient will be notified by letter of the results. Ezra alexander/joão: 13:01:25 Restaurant Line Server: Ira NICK(Ananya)(M), [facility] letter sent: Compared to Prior B9 Mammogram BI-R ADS: 2 Benign Dictated By: EZRA GARCIA DO 1301 Transcribed By: JOÃO on 08/22/17 1301 COPY TO: KERRI POLANCO MD CT ABDOMEN/PELVIS [place] [address] Patient Name: PRIMITIVO MORGAN MR #: [id number] : 1955 Age/Sex: 61/F Req #: [id number] Adm Physician: Ordered by: CRISTINE BROTHERS MD Report #: [id number] Location: ER Room/Bed: Procedure: [id number] CT/CT ABDOMEN/PELVIS WO Exam Date: 03/18/17 Exam Time: 0350 REPORT STATUS: S igned EXAM: CT ABDOMEN AND PELVIS without IV CONTRAST DATE: 03/18/2017 2:53 AM Time stamp on Exam: 0354 hours INDICATION: Left-sided abdominal pain CO MPARISON: CT of the abdomen and pelvis without IV contrast August 28, 2014 HEIDI HNIQUE: The abdomen and pelvis were scanned using a multidetector helical scan ner. Coronal and sagittal reformations were obtained. Renal stone protocol per formed. IV Contrast: None Oral Contrast: Gastrografin CTDIvol has been rev iewed. It is below the limits set by the Radiation Protocol Committee (RPC). FINDINGS: LOWER THORAX: No consolidations LIVER: No masses BILIARY: The gallbladder is unremarkable. No ductal dilation. SPLEEN: No masses PANCREAS: No masses ADRENALS: No nodules RIGHT KIDNEY: No nephroureter olithiasis or hydronephrosis. LEFT KIDNEY: No nephroureterolithiasis or hyd ronephrosis. GI TRACT: No distention, wall thickening or evidence of obstru ction. No evidence of appendicitis. VESSELS: Stable appearance PERITONE UM/RETROPERITONEUM: No free air or fluid LYMPH NODES: No lymphadenopathy REPRODUCTIVE ORGANS: Unremarkable BLADDER: Unremarkable SOFT TISSUES: Tin y fat-containing umbilical hernia. BONES: No suspicious bone lesions. IMP RESSION: No CT findings to explain patient's left-sided abdominal pain. N o nephroureterolithiasis. Signed by: Dr. Luis Fernando Aldana M.D. on 03/18/20 4:14 AM Dictated By: LUIS FERNANDO ALDANA MD 3 Transcribed By: GAVIN on 03/18/17413 SUBSTATION WIREMAN Y TO: CRISTINE BROTHERS MD
== END 2020-03-04 12:48 | disposition home or self-care (01) ==
LOC: ER 08:00
DX: K29.70 Gastritis, unspecified, without bleeding (principal); R10.814 Left lower quadrant abdominal tenderness; I10 Essential (primary) hypertension; E78.5 Hyperlipidemia, unspecified
CPT/HCPCS: 36415; 71045; 74177; 80053; 81001; 82150; 82550; 82553; 83690; 84484; 85025; 85610; 85730; 87086; 93005; 99284; C9113; J2270; J2405; J2543; J7030; Q9967

== ENCOUNTER → 2021-01-25 | Outpatient (CLI) | payer BC, MEDICARE | LOC: MAMMO 08:55 | PROVIDERS: ATTEND Obstetrics & Gynecology | DX: Z12.31 Encounter for screening mammogram for malignant neoplasm of breast (principal); Z13.820 Encounter for screening for osteoporosis | CPT/HCPCS: 77067; 77080 ==

== ENCOUNTER 2022-04-09 18:43 | Emergency (ER) | payer BC, MEDICARE ==
[~2022-04-09] VITALS: Ht 152.4 cm; Wt 59.9 kg
[~2022-04-09 18:43] MED LIST changes: +BUTALB-ACETAMI1 EACH; +MAGNESIUM; +METOPROLOL SUCC50 MG PO; +ONDANSETRON ODT8 MG PO; +VASOTEC5 MG PO
[2022-04-09] MEDS ORDERED: ONDANSETRON HCL INJ 2MG/ML 2ML 2 MG/ML VIAL IV STA (18:55)
[2022-04-09] MEDS ORDERED: FAMOTIDINE 20 MG/2 ML VIAL IV STA (18:56)
[2022-04-09] MEDS ORDERED: DONNATAL/LIDOCAINE/MAALOX 30 ML SUSP PO STA (18:56)
[2022-04-09] MEDS ORDERED: SODIUM CHLORIDE 0.9% 1000ML 1,000 ML IV ONE (19:00)
[2022-04-09] MEDS ORDERED: Morphine 2mg Syringe 2 MG/ML SYR IV ONE (19:00)
[2022-04-09 19:18] LABS: CLARITY,URINE SL CLOUDY (CLEAR); COLOR,URINE YELLOW (YELLOW); KETONES,URINE NEGATIVE (NEGATIVE); LEUKOCYTE ESTERASE ,URINE TRACE (NEGATIVE); NITRITE,URINE NEGATIVE (NEGATIVE); PROTEIN,URINE DIPSTICK NEGATIVE (NEGATIVE); URINE UROBILINOGEN 0.2 mg/dL (0.2 - 1)
[2022-04-09 19:32] LABS: BACTERIA,URINE MANY /HPF; EPITHELIAL CELLS,URINE FEW /LPF
[2022-04-09 19:47] LABS: BASOPHILS % 0.3 % (0.0-1.0); EOSINOPHILS # (AUTO) 0.1 (0.0-0.4); EOSINOPHILS % 1.3 % (0.0-6.0); HEMATOCRIT 45.8 % (34.2-44.1); LYMPHOCYTES # (AUTO) 1.4 (1.0-3.2); LYMPHOCYTES % 23.2 % (18.0-39.1); MEAN CORPUSCULAR HEMOGLOBIN 33.9 pg (28-32); MEAN CORPUSCULAR HGB CONC 32.8 g/dL (31-35); MEAN CORPUSCULAR VOLUME 103.6 fL (81-99); MONOCYTES # (AUTO) 0.7 (0.2-0.8); NEUTROPHILS # (AUTO) 3.8 (2.1-6.9); NEUTROPHILS % 61.6 % (38.7-80.0); PLATELET COUNT 175 x10e3/uL (140-360); RED BLOOD COUNT 4.42 x10e6/uL (3.6-5.1); RED CELL DISTRIBUTION WIDTH 11.9 % (11.7-14.4)
[2022-04-09 20:06] LABS: ALBUMIN 3.8 g/dL (3.5-5.0); ALBUMIN/GLOBULIN RATIO 1.3 (0.8-2.0); ANION GAP 15.5 mmol/L (8-16); CALCIUM 8.9 mg/dL (8.4-10.2); CREATININE, SERUM 0.81 mg/dL (0.57-1.11); POTASSIUM 4.5 mmol/L (3.5-5.1)
[2022-04-09] MEDS ORDERED: LIDOCAINE VISC 2% SOLN 15 ML UDC ONE (20:16)
[2022-04-09] MEDS ORDERED: MAGNESIUM/ALUMINUM/SIMETHICONE 30 ML UDC ONE (20:17)
[2022-04-09] MEDS ORDERED: BELLADONNA ALK/PHENOBARBITAL 5 ML UDC ONE (20:17)
[2022-04-09] MEDS ORDERED: IOPAMIDOL 370 MG/ML 100 ML INFUS..BTL INJ ONE (20:30)
[2022-04-09 21:30] VITALS: BP 140/65
== END 2022-04-09 21:32 | disposition home or self-care (01) ==
LOC: MERGE 18:52 → ER 18:52
DX: R10.12 Left upper quadrant pain (principal); R11.0 Nausea; I10 Essential (primary) hypertension; E78.5 Hyperlipidemia, unspecified
CPT/HCPCS: 36415; 74177; 80053; 81001; 83690; 85025; 93005; 99283; J2270; J2405; J7030; Q9967

== ENCOUNTER → 2022-04-16 | Outpatient (CLI) | payer BC, MEDICARE | LOC: MAMMO 08:31 | PROVIDERS: ATTEND Internal Medicine | DX: Z12.31 Encounter for screening mammogram for malignant neoplasm of breast (principal); M81.8 Other osteoporosis without current pathological fracture | CPT/HCPCS: 77067; 77080 ==

== ENCOUNTER → 2025-01-13 | Outpatient (REF) | payer MEDICARE, BC | LOC: MAMMO 08:25 | PROVIDERS: ATTEND Internal Medicine | DX: N64.4 Mastodynia (principal); M81.0 Age-related osteoporosis without current pathological fracture | CPT/HCPCS: 77066; 77080 ==